=== PATIENT | male | born 1965 | race Caucasian/White ===

== ENCOUNTER 2018-09-23 11:41 | Inpatient (IN) | payer OTHER ==
[2018-09-23 12:18] LABS: ADD MAN DIFF? NO
[2018-09-23 12:23] LABS: WHITE BLOOD COUNT 7.3 10^3/ul (4.8-10.8)
[2018-09-23 12:23] LABS: BASOPHIL # 0.1 10^3/ul (0.0-0.1); BASOPHILS % 1.1 % (0.0-2.0); EOSINOPHILS # 0.1 10^3/ul (0.0-0.5); EOSINOPHILS % 1.4 % (0.0-7.0); HEMATOCRIT 49.2 % (42.0-52.0); HEMOGLOBIN 14.9 g/dl (14.0-18.0); LYMPHOCYTES # 1.1 10^3/ul (0.8-2.9); LYMPHOCYTES % 15.5 % (15.0-51.0); MEAN CORPUSCULAR HEMOGLOBIN 28.3 pg (29.0-33.0); MEAN CORPUSCULAR HGB CONC 30.3 g/dl (32.0-37.0); MEAN CORPUSCULAR VOLUME 93.4 fl (82.0-101.0); MEAN PLATELET VOLUME 9.6 fl (7.4-10.4); MONOCYTES % 13.7 % (0.0-11.0); NEUTROPHIL # 4.9 10^3/ul (1.6-7.5); NEUTROPHILS % 67.1 % (39.0-77.0); NUCLEATED RED BLOOD CELLS% 0.3 /100WBC (0.0-0.0); PLATELET COUNT 288 10^3/UL (140-415); RED BLOOD COUNT 5.27 10^6/ul (4.70-6.10); RED CELL DISTRIBUTION WIDTH 15.4 % (11.5-14.5)
[2018-09-23 12:43] LABS: PROTIME 15.3 Sec (11.9-14.9); PT RATIO 1.2
[2018-09-23 12:44] LABS: PARTIAL THROMBOPLASTIN TIME 31.9 Sec (23.0-35.0)
[2018-09-23] MEDS: ETOMIDATE 20 MG INJ IV (12:44)
[2018-09-23] MEDS: SUCCINYLCHOLINE CHLORIDE 100 MG/5 ML SYG IV (12:44)
[2018-09-23 12:48] LABS: ALANINE AMINOTRANSFERASE 52 IU/L (13-69); ALBUMIN 3.4 g/dl (3.3-4.9); ALBUMIN/GLOBULIN RATIO 0.97; ALKALINE PHOSPHATASE 143 IU/L (42-121); ANION GAP 8 (5-13); ASPARTATE AMINO TRANSFERASE 113 IU/L (15-46); BILIRUBIN,INDIRECT 0.6 mg/dl (0-1.1); BILIRUBIN,TOTAL 0.6 mg/dl (0.2-1.3); BLOOD UREA NITROGEN 16 mg/dl (7-20); CALCIUM 8.8 mg/dl (8.4-10.2); CARBON DIOXIDE 36 mmol/L (21-31); CHLORIDE 90 mmol/L (97-110); CREATINE KINASE 107 IU/L (23-200); CREATININE 0.92 mg/dl (0.61-1.24); Estimated GFR > 60 mL/min (>60); GLUCOSE 301 mg/dl (70-220); POTASSIUM 4.3 mmol/L (3.5-5.1); SODIUM 134 mmol/L (135-144); TOTAL PROTEIN 6.9 g/dl (6.1-8.1)
[2018-09-23 12:49] LABS: ACETAMINOPHEN < 10.0 ug/ml (10.0-30.0); ETHANOL < 10.0 mg/dl (0-0); SALICYLATE < 1.0 mg/dl (5.0-30.0)
[2018-09-23 12:59] LABS: CK INDEX 3.2; TROPONIN-I 0.013 ng/ml (0.000-0.120)
[2018-09-23 13:03] LABS: CK-MB 3.43 ng/ml (0.0-2.4)
[2018-09-23] MEDS: FUROSEMIDE 40 MG INJ IV ×2 (13:16→14:20)
[2018-09-23] MEDS: ALBUTEROL 0.5% (NEB) 2.5 MG/0.5 ML AMP INH (13:19)
[2018-09-23] MEDS: IPRATROPIUM (NEB) 0.5 MG/2.5 ML AMP INH (13:19)
[2018-09-23 13:25] LABS: B-TYPE NATRIURETIC PEPTIDE 1770 PG/ML (0-125)
[2018-09-23 13:40] LABS: FREE THYROXINE INDEX (Calc) 2.46 ug/ml (0.65-3.89); T3 UPTAKE 39.7 % (23.5-40.5); T4 (THYROXINE) 6.2 ug/dl (5.5-11.0)
[2018-09-23 13:41] LABS: AADO2 Arterial 499.2 mmHg (7.0-24.0); Allen Test ACCEPTAB; Arterial Base Excess 2.5 mmol/L (-3.0-3); Arterial Blood Gas Oxygen Sat 93.4 mmHG (95.0-98.0); Arterial COHb 3.8 % (0.0-3.0); Arterial Fraction of Oxyhgb 89.5 % (93.0-99.0); Arterial HCO3 37.7 mmol/L (22.0-26.0); Arterial MetHb 0.4 % (0.0-1.5); Arterial pCO2 126.3 mmhg (35-45); Blood Gas IEPAP 18/6; Blood Gas PS 12; MODE MASK - BIPAP; Site Right Radial
[2018-09-23] MEDS: PROPOFOL 100 ML IV ×3 (14:18→22:16)
[2018-09-23 14:20] LABS: HEMOGLOBIN A1C 10.4 % (0-5.9)
[2018-09-23] MEDS: PIPER-TAZO 3.375 GM IV (PMX) 100 ML IVPB (14:20)
[2018-09-23] MEDS: METHYLPREDNISOLONE 125 MG INJ IV (14:20)
[2018-09-23 14:28] LABS: ADD UMIC YES; UR ASCORBIC ACID NEGATIVE (NEGATIVE); UR BILIRUBIN (Dip) NEGATIVE (NEGATIVE); UR BLOOD (Dip) NEGATIVE (NEGATIVE); UR CLARITY CLEAR (CLEAR); UR COLOR AMBER (YELLOW); UR GLUCOSE (Dip) 2+ mg/dL (NEGATIVE); UR KETONES (Dip) NEGATIVE (NEGATIVE); UR LEUKOCYTE ESTERASE (Dip) NEGATIVE Leu/ul (NEGATIVE); UR NITRITE (Dip) NEGATIVE (NEGATIVE); UR RBC 9 /HPF (0-5); UR SPECIFIC GRAVITY (Dip) 1.022 (1.003-1.030); UR TOTAL PROTEIN (Dip) 3+ mg/dl (NEGATIVE); UR UROBILINOGEN (Dip) 2+ mg/dL (NEGATIVE); UR WBC 4 /HPF (0-5)
[2018-09-23 14:30] LABS: AMPHETAMINE/METHAMPHETAMINE Negative (NEGATIVE); BARBITURATES Negative (NEGATIVE); BENZODIAZEPINES Negative (NEGATIVE); CANNABINOIDS Positive (NEGATIVE); COCAINE Negative (NEGATIVE); OPIATES Negative (NEGATIVE)
[2018-09-23] MEDS ORDERED: ACETAMINOPHEN 325 MG TAB PO (14:30)
[2018-09-23] MEDS ORDERED: ONDANSETRON 4 MG INJ IV (14:30)
[2018-09-23] MEDS ORDERED: NACL 0.9% 3 ML SYG IV (15:30)
[2018-09-23] MEDS ORDERED: DEXTROSE 50% 50 ML SYRINGE IV (16:00)
[2018-09-23] MEDS: VANCOMYCIN 1 GM (PMX) 250 ML IVPB (16:26)
[2018-09-23] MEDS: ACCU-CHEK XX ×6 (18:12→23:00)
[2018-09-23] MEDS: FUROSEMIDE 20 MG INJ IV (18:15)
[2018-09-23] MEDS: LEVOFLOXACIN 750MG/D5W (PMX) 150 ML IVPB (18:39)
[2018-09-23] MEDS: INSULIN HUMAN REGULAR 100 UNIT in SOD CHLORIDE 0.9% 99 ML IV ×4 (18:48→23:07)
[2018-09-23] MEDS ORDERED: PROPOFOL 100 ML IV (19:45)
[2018-09-23 20:36] LABS: AADO2 Arterial 584.2 mmHg (7.0-24.0); Allen Test ACCEPTAB; Arterial Base Excess 4.1 mmol/L (-3.0-3); Arterial COHb 2.1 % (0.0-3.0); Arterial Fraction of Oxyhgb 89.8 % (93.0-99.0); Arterial MetHb 0.3 % (0.0-1.5); Arterial pCO2 61.3 mmhg (35-45); MODE VENT - AC; Site Right Radial
[2018-09-23] MEDS: ALBUTEROL/IPRATROPIUM (NEB) 3 ML AMP HHN (22:01)
[2018-09-23] MEDS: FAMOTIDINE 20 MG INJ IV (22:03)
[2018-09-24] MEDS: INSULIN HUMAN REGULAR 100 UNIT in SOD CHLORIDE 0.9% 99 ML IV ×6 (00:11→23:07)
[2018-09-24] MEDS: PROPOFOL 100 ML IV ×9 (00:50→23:04)
[2018-09-24] MEDS: ACCU-CHEK XX ×24 (01:12→23:08)
[2018-09-24] MEDS: ALBUTEROL/IPRATROPIUM (NEB) 3 ML AMP HHN ×3 (01:52→09:06)
[2018-09-24 04:45] LABS: ADD MAN DIFF? NO
[2018-09-24 04:46] LABS: BASOPHILS % 0.1 % (0.0-2.0); HEMATOCRIT 44.5 % (42.0-52.0); LYMPHOCYTES # 1.1 10^3/ul (0.8-2.9); MEAN CORPUSCULAR HEMOGLOBIN 28.3 pg (29.0-33.0); MEAN CORPUSCULAR HGB CONC 31.5 g/dl (32.0-37.0); MEAN CORPUSCULAR VOLUME 89.9 fl (82.0-101.0); MEAN PLATELET VOLUME 9.8 fl (7.4-10.4); MONOCYTE # 0.9 10^3/ul (0.3-0.9); MONOCYTES % 12.4 % (0.0-11.0); NEUTROPHIL # 5.1 10^3/ul (1.6-7.5); NEUTROPHILS % 71.8 % (39.0-77.0); NUCLEATED RED BLOOD CELLS% 0.4 /100WBC (0.0-0.0); PLATELET COUNT 270 10^3/UL (140-415); RED BLOOD COUNT 4.95 10^6/ul (4.70-6.10); RED CELL DISTRIBUTION WIDTH 16.1 % (11.5-14.5)
[2018-09-24 04:46] LABS: WHITE BLOOD COUNT 7.1 10^3/ul (4.8-10.8)
[2018-09-24 04:57] LABS: HEMOGLOBIN A1C 10.5 % (0-5.9)
[2018-09-24 05:05] LABS: AADO2 Arterial 575.7 mmHg (7.0-24.0); ALANINE AMINOTRANSFERASE 52 IU/L (13-69); ALBUMIN/GLOBULIN RATIO 0.93; ALKALINE PHOSPHATASE 103 IU/L (42-121); ANION GAP 9 (5-13); ASPARTATE AMINO TRANSFERASE 107 IU/L (15-46); Allen Test ACCEPTAB; Arterial Base Excess 6.1 mmol/L (-3.0-3); Arterial Blood Gas Oxygen Sat 95.1 mmHG (95.0-98.0); Arterial Fraction of Oxyhgb 93.8 % (93.0-99.0); Arterial HCO3 33.5 mmol/L (22.0-26.0); Arterial MetHb 0.4 % (0.0-1.5); Arterial pCO2 59.4 mmhg (35-45); BILIRUBIN,INDIRECT 0.2 mg/dl (0-1.1); BILIRUBIN,TOTAL 0.2 mg/dl (0.2-1.3); BLOOD UREA NITROGEN 20 mg/dl (7-20); CALCIUM 8.5 mg/dl (8.4-10.2); CARBON DIOXIDE 35 mmol/L (21-31); CHLORIDE 92 mmol/L (97-110); Estimated GFR > 60 mL/min (>60); GLUCOSE 174 mg/dl (70-220); MODE VENT - AC; POTASSIUM 4.5 mmol/L (3.5-5.1); SODIUM 136 mmol/L (135-144); Site Right Radial; TOTAL PROTEIN 6.2 g/dl (6.1-8.1)
[2018-09-24] MEDS: FUROSEMIDE 20 MG INJ IV ×2 (06:01→18:25)
[2018-09-24 08:49] LABS: AADO2 Arterial 583.7 mmHg (7.0-24.0); Allen Test ACCEPTAB; Arterial Base Excess 7.7 mmol/L (-3.0-3); Arterial Blood Gas Oxygen Sat 94.5 mmHG (95.0-98.0); Arterial COHb 0.9 % (0.0-3.0); Arterial Fraction of Oxyhgb 93.4 % (93.0-99.0); Arterial HCO3 34.3 mmol/L (22.0-26.0); Arterial MetHb 0.3 % (0.0-1.5); Arterial pCO2 55.5 mmhg (35-45); MODE VENT - AC; Site Right Radial
[2018-09-24] MEDS: FAMOTIDINE 20 MG INJ IV ×2 (09:57→21:24)
[2018-09-24] MEDS: ENOXAPARIN 30 MG/0.3 ML SYG SC (10:07)
[2018-09-24] MEDS: IPRATROPIUM (HFA) 12.9 GM INHALER INH ×3 (14:05→20:08)
[2018-09-24] MEDS: ALBUTEROL HFA 8 GM INHALER INH ×3 (14:05→20:07)
[2018-09-24] MEDS: LEVOFLOXACIN 750MG/D5W (PMX) 150 ML IVPB (18:24)
[2018-09-24] MEDS: HYDROmorphONE 0.5 MG/0.5 ML SYG IV (20:50)
[2018-09-25] MEDS: IPRATROPIUM (HFA) 12.9 GM INHALER INH ×6 (00:17→20:00)
[2018-09-25] MEDS: ALBUTEROL HFA 8 GM INHALER INH ×6 (00:17→20:00)
[2018-09-25] MEDS: ACCU-CHEK XX ×24 (00:55→23:00)
[2018-09-25] MEDS: PROPOFOL 100 ML IV ×9 (01:31→21:53)
[2018-09-25] MEDS: HYDROmorphONE 0.5 MG/0.5 ML SYG IV ×2 (01:31→12:53)
[2018-09-25] MEDS: INSULIN HUMAN REGULAR 100 UNIT in SOD CHLORIDE 0.9% 99 ML IV ×2 (05:44→07:04)
[2018-09-25] MEDS: FUROSEMIDE 20 MG INJ IV (06:43)
[2018-09-25 08:19] LABS: ADD MAN DIFF? NO
[2018-09-25 08:23] LABS: WHITE BLOOD COUNT 9.2 10^3/ul (4.8-10.8)
[2018-09-25 08:23] LABS: BASOPHIL # 0.1 10^3/ul (0.0-0.1); BASOPHILS % 0.5 % (0.0-2.0); EOSINOPHILS # 0.1 10^3/ul (0.0-0.5); EOSINOPHILS % 0.9 % (0.0-7.0); HEMATOCRIT 45.7 % (42.0-52.0); HEMOGLOBIN 14.4 g/dl (14.0-18.0); LYMPHOCYTES # 2.9 10^3/ul (0.8-2.9); MEAN CORPUSCULAR HEMOGLOBIN 28.4 pg (29.0-33.0); MEAN CORPUSCULAR HGB CONC 31.5 g/dl (32.0-37.0); MEAN CORPUSCULAR VOLUME 90.1 fl (82.0-101.0); MEAN PLATELET VOLUME 9.2 fl (7.4-10.4); MONOCYTE # 0.9 10^3/ul (0.3-0.9); NEUTROPHIL # 5.2 10^3/ul (1.6-7.5); NEUTROPHILS % 56.2 % (39.0-77.0); PLATELET COUNT 262 10^3/UL (140-415); RED BLOOD COUNT 5.07 10^6/ul (4.70-6.10)
[2018-09-25] MEDS: FAMOTIDINE 20 MG INJ IV ×2 (08:40→20:16)
[2018-09-25] MEDS: ENOXAPARIN 30 MG/0.3 ML SYG SC (08:41)
[2018-09-25 08:45] LABS: ANION GAP 8 (5-13); BLOOD UREA NITROGEN 22 mg/dl (7-20); CALCIUM 8.3 mg/dl (8.4-10.2); CARBON DIOXIDE 38 mmol/L (21-31); CHLORIDE 92 mmol/L (97-110); CREATININE 0.83 mg/dl (0.61-1.24); Estimated GFR > 60 mL/min (>60); GLUCOSE 120 mg/dl (70-220); POTASSIUM 4.1 mmol/L (3.5-5.1); SODIUM 138 mmol/L (135-144)
[2018-09-25 10:32] LABS: AADO2 Arterial 570.9 mmHg (7.0-24.0); Allen Test ACCEPTAB; Arterial Blood Gas Oxygen Sat 95.9 mmHG (95.0-98.0); Arterial COHb 0.6 % (0.0-3.0); Arterial HCO3 32.9 mmol/L (22.0-26.0); Arterial MetHb 0.3 % (0.0-1.5); Arterial pCO2 56.5 mmhg (35-45); MODE VENT - AC; Site Right Radial
[2018-09-25] MEDS: CEFEPIME 1GM/50 ML (PMX) 50 ML IVPB ×2 (11:32→20:16)
[2018-09-25] MEDS: FUROSEMIDE 40 MG INJ IV ×2 (11:32→18:12)
[2018-09-25] MEDS: LEVOFLOXACIN 750MG/D5W (PMX) 150 ML IVPB (18:12)
[2018-09-25] MEDS: NYSTATIN 30 GM POWDER BTL TOP ×2 (18:15→21:23)
[2018-09-26] MEDS: ALBUTEROL HFA 8 GM INHALER INH ×5 (00:04→19:40)
[2018-09-26] MEDS: IPRATROPIUM (HFA) 12.9 GM INHALER INH ×5 (00:04→19:40)
[2018-09-26] MEDS: PROPOFOL 100 ML IV ×12 (00:19→23:58)
[2018-09-26] MEDS: ACCU-CHEK XX ×16 (01:00→14:53)
[2018-09-26 05:24] LABS: ADD MAN DIFF? NO
[2018-09-26 05:27] LABS: WHITE BLOOD COUNT 7.5 10^3/ul (4.8-10.8)
[2018-09-26 05:27] LABS: BASOPHILS % 0.4 % (0.0-2.0); EOSINOPHILS # 0.1 10^3/ul (0.0-0.5); EOSINOPHILS % 0.9 % (0.0-7.0); HEMOGLOBIN 14.2 g/dl (14.0-18.0); LYMPHOCYTES # 1.7 10^3/ul (0.8-2.9); LYMPHOCYTES % 23.1 % (15.0-51.0); MEAN CORPUSCULAR HEMOGLOBIN 28.1 pg (29.0-33.0); MEAN CORPUSCULAR HGB CONC 31.6 g/dl (32.0-37.0); MEAN CORPUSCULAR VOLUME 88.9 fl (82.0-101.0); MEAN PLATELET VOLUME 10.3 fl (7.4-10.4); MONOCYTE # 0.8 10^3/ul (0.3-0.9); MONOCYTES % 10.7 % (0.0-11.0); NEUTROPHIL # 4.8 10^3/ul (1.6-7.5); NEUTROPHILS % 64.5 % (39.0-77.0); PLATELET COUNT 234 10^3/UL (140-415); RED BLOOD COUNT 5.06 10^6/ul (4.70-6.10); RED CELL DISTRIBUTION WIDTH 16.2 % (11.5-14.5)
[2018-09-26] MEDS: FUROSEMIDE 40 MG INJ IV ×2 (05:49→18:07)
[2018-09-26 05:50] LABS: ALANINE AMINOTRANSFERASE 32 IU/L (13-69); ALBUMIN 2.5 g/dl (3.3-4.9); ALKALINE PHOSPHATASE 61 IU/L (42-121); ANION GAP 7 (5-13); ASPARTATE AMINO TRANSFERASE 50 IU/L (15-46); BILIRUBIN,INDIRECT 0.5 mg/dl (0-1.1); BILIRUBIN,TOTAL 0.5 mg/dl (0.2-1.3); BLOOD UREA NITROGEN 17 mg/dl (7-20); CALCIUM 7.7 mg/dl (8.4-10.2); CARBON DIOXIDE 37 mmol/L (21-31); CHLORIDE 95 mmol/L (97-110); CREATININE 0.56 mg/dl (0.61-1.24); Estimated GFR > 60 mL/min (>60); GLUCOSE 111 mg/dl (70-220); POTASSIUM 4.4 mmol/L (3.5-5.1); SODIUM 139 mmol/L (135-144); TOTAL PROTEIN 5.6 g/dl (6.1-8.1)
[2018-09-26] MEDS: INSULIN HUMAN REGULAR 100 UNIT in SOD CHLORIDE 0.9% 99 ML IV (05:55)
[2018-09-26 07:26] LABS: AADO2 Arterial 496.5 mmHg (7.0-24.0); Allen Test ACCEPTAB; Arterial Base Excess 12.5 mmol/L (-3.0-3); Arterial Blood Gas Oxygen Sat 94.6 mmHG (95.0-98.0); Arterial COHb 0.6 % (0.0-3.0); Arterial Fraction of Oxyhgb 93.7 % (93.0-99.0); Arterial HCO3 40.6 mmol/L (22.0-26.0); Arterial MetHb 0.3 % (0.0-1.5); Arterial pCO2 66.2 mmhg (35-45); MODE VENT - AC; Site Right Radial
[2018-09-26] MEDS: FAMOTIDINE 20 MG INJ IV ×2 (08:23→20:00)
[2018-09-26] MEDS: CEFEPIME 1GM/50 ML (PMX) 50 ML IVPB (08:23)
[2018-09-26] MEDS: NYSTATIN 30 GM POWDER BTL TOP ×2 (08:24→20:06)
[2018-09-26] MEDS: ENOXAPARIN 30 MG/0.3 ML SYG SC ×2 (08:46→12:39)
[2018-09-26] MEDS: HYDROmorphONE 0.5 MG/0.5 ML SYG IV (15:29)
[2018-09-26] MEDS: LIDOCAINE 1% (MPF) 5 ML VIAL SC (16:00)
[2018-09-26] MEDS ORDERED: GLUCAGON 1 MG INJ IM (16:30)
[2018-09-26] MEDS ORDERED: GLUCOSE GEL 15 GRAM TUBE BUCCAL (16:30)
[2018-09-26] MEDS ORDERED: DEXTROSE 50% 50 ML SYRINGE IV ×2 (16:30)
[2018-09-26] MEDS ORDERED: GLUCOSE GEL 15 GRAM TUBE PO ×2 (16:30)
[2018-09-26] MEDS: INSULIN ASPART [NOVOLOG] 3 ML PEN SC ×2 (17:00→20:02)
[2018-09-26] MEDS ORDERED: ALBUTEROL HFA 8 GM INHALER INH (18:00)
[2018-09-26] MEDS: LEVOFLOXACIN 750MG/D5W (PMX) 150 ML IVPB (18:07)
[2018-09-26] MEDS: INSULIN GLARGINE [LANTus] (100 UNITS/ML) SYG SC (20:03)
[2018-09-26] MEDS ORDERED: CEFEPIME 2GM/50 ML (PMX) 50 ML IVPB (21:00)
[2018-09-27] MEDS: INSULIN ASPART [NOVOLOG] 3 ML PEN SC ×6 (01:00→20:41)
[2018-09-27] MEDS: PROPOFOL 100 ML IV ×13 (01:26→23:47)
[2018-09-27] MEDS: ALBUTEROL HFA 8 GM INHALER INH ×4 (01:27→19:22)
[2018-09-27] MEDS: IPRATROPIUM (HFA) 12.9 GM INHALER INH ×4 (01:27→19:22)
[2018-09-27] MEDS: ACCU-CHEK XX (02:00)
[2018-09-27 04:37] LABS: ADD MAN DIFF? NO
[2018-09-27 04:38] LABS: BASOPHIL # 0.1 10^3/ul (0.0-0.1); BASOPHILS % 0.6 % (0.0-2.0); EOSINOPHILS # 0.1 10^3/ul (0.0-0.5); EOSINOPHILS % 1.2 % (0.0-7.0); HEMATOCRIT 44.3 % (42.0-52.0); HEMOGLOBIN 13.9 g/dl (14.0-18.0); LYMPHOCYTES # 2.2 10^3/ul (0.8-2.9); LYMPHOCYTES % 27.6 % (15.0-51.0); MEAN CORPUSCULAR HEMOGLOBIN 27.9 pg (29.0-33.0); MEAN CORPUSCULAR HGB CONC 31.4 g/dl (32.0-37.0); MEAN PLATELET VOLUME 9.5 fl (7.4-10.4); MONOCYTE # 1.1 10^3/ul (0.3-0.9); MONOCYTES % 13.1 % (0.0-11.0); NEUTROPHIL # 4.6 10^3/ul (1.6-7.5); NEUTROPHILS % 57.1 % (39.0-77.0); PLATELET COUNT 235 10^3/UL (140-415); RED BLOOD COUNT 4.98 10^6/ul (4.70-6.10); RED CELL DISTRIBUTION WIDTH 16.2 % (11.5-14.5)
[2018-09-27] MEDS: FUROSEMIDE 40 MG INJ IV ×2 (04:49→17:08)
[2018-09-27 04:59] LABS: BLOOD UREA NITROGEN 13 mg/dl (7-20); CALCIUM 8.1 mg/dl (8.4-10.2); CHLORIDE 92 mmol/L (97-110); CREATININE 0.63 mg/dl (0.61-1.24); Estimated GFR > 60 mL/min (>60); GLUCOSE 114 mg/dl (70-220); POTASSIUM 3.3 mmol/L (3.5-5.1); SODIUM 138 mmol/L (135-144)
[2018-09-27 05:09] LABS: ANION GAP 7 (5-13); CARBON DIOXIDE 39 mmol/L (21-31)
[2018-09-27] MEDS ORDERED: POTASSIUM CHLORIDE (SR) 20 MEQ TAB PO (08:34)
[2018-09-27] MEDS: POTASSIUM CHLORIDE 20 MEQ POWDER FOR ORAL SOLN PO (08:56)
[2018-09-27] MEDS: ENOXAPARIN 60 MG/0.6 ML SYG SC (08:58)
[2018-09-27] MEDS: FAMOTIDINE 20 MG INJ IV ×2 (09:00→20:42)
[2018-09-27] MEDS: NYSTATIN 30 GM POWDER BTL TOP ×2 (09:00→20:57)
[2018-09-27] MEDS: LEVOFLOXACIN 750MG/D5W (PMX) 150 ML IVPB (18:32)
[2018-09-27] MEDS: INSULIN GLARGINE [LANTus] (100 UNITS/ML) SYG SC (20:48)
[2018-09-28] MEDS: LORAZEPAM 4 MG/ML VIAL IV (00:49)
[2018-09-28] MEDS: INSULIN ASPART [NOVOLOG] 3 ML PEN SC ×6 (00:59→21:00)
[2018-09-28] MEDS: PROPOFOL 100 ML IV ×5 (01:27→10:48)
[2018-09-28] MEDS: ALBUTEROL HFA 8 GM INHALER INH ×4 (01:56→19:47)
[2018-09-28] MEDS: IPRATROPIUM (HFA) 12.9 GM INHALER INH ×4 (01:56→19:47)
[2018-09-28] MEDS: ACCU-CHEK XX (02:15)
[2018-09-28] MEDS: MIDAZOLAM (DRIP) 50 mg/50 mL 50 ML IV ×2 (03:24→11:15)
[2018-09-28 03:40] LABS: ADD UMIC YES; UR ASCORBIC ACID 40 mg/dL (NEGATIVE); UR BILIRUBIN (Dip) NEGATIVE (NEGATIVE); UR BLOOD (Dip) 1+ mg/dL (NEGATIVE); UR CLARITY SLIGHTLY CLOUDY (CLEAR); UR COLOR AMBER (YELLOW); UR GLUCOSE (Dip) NEGATIVE (NEGATIVE); UR KETONES (Dip) NEGATIVE (NEGATIVE); UR LEUKOCYTE ESTERASE (Dip) NEGATIVE Leu/ul (NEGATIVE); UR NITRITE (Dip) NEGATIVE (NEGATIVE); UR RBC > 182 /HPF (0-5); UR SPECIFIC GRAVITY (Dip) 1.031 (1.003-1.030); UR TOTAL PROTEIN (Dip) 1+ mg/dl (NEGATIVE); UR UROBILINOGEN (Dip) 2+ mg/dL (NEGATIVE); UR WBC 9 /HPF (0-5)
[2018-09-28] MEDS: FUROSEMIDE 40 MG INJ IV ×2 (05:13→17:48)
[2018-09-28 05:23] LABS: ADD MAN DIFF? NO
[2018-09-28 05:32] LABS: BASOPHILS % 0.4 % (0.0-2.0); EOSINOPHILS # 0.2 10^3/ul (0.0-0.5); EOSINOPHILS % 2.1 % (0.0-7.0); HEMATOCRIT 44.8 % (42.0-52.0); HEMOGLOBIN 13.9 g/dl (14.0-18.0); LYMPHOCYTES # 2.2 10^3/ul (0.8-2.9); LYMPHOCYTES % 24.5 % (15.0-51.0); MEAN CORPUSCULAR HEMOGLOBIN 27.7 pg (29.0-33.0); MEAN CORPUSCULAR VOLUME 89.2 fl (82.0-101.0); MEAN PLATELET VOLUME 9.4 fl (7.4-10.4); MONOCYTE # 1.3 10^3/ul (0.3-0.9); MONOCYTES % 14.5 % (0.0-11.0); NEUTROPHIL # 5.3 10^3/ul (1.6-7.5); NEUTROPHILS % 57.9 % (39.0-77.0); PLATELET COUNT 230 10^3/UL (140-415); RED BLOOD COUNT 5.02 10^6/ul (4.70-6.10); RED CELL DISTRIBUTION WIDTH 16.4 % (11.5-14.5)
[2018-09-28 05:32] LABS: WHITE BLOOD COUNT 9.1 10^3/ul (4.8-10.8)
[2018-09-28 06:08] LABS: BLOOD UREA NITROGEN 12 mg/dl (7-20); CHLORIDE 90 mmol/L (97-110); CREATININE 0.55 mg/dl (0.61-1.24); Estimated GFR > 60 mL/min (>60); GLUCOSE 127 mg/dl (70-220); MAGNESIUM 1.2 mg/dl (1.7-2.5); POTASSIUM 3.3 mmol/L (3.5-5.1); SODIUM 141 mmol/L (135-144)
[2018-09-28 07:01] LABS: ANION GAP 11 (5-13)
[2018-09-28 07:08] LABS: CARBON DIOXIDE 40 mmol/L (21-31)
[2018-09-28] MEDS: MAGNESIUM SULFATE 4 GM/100 ML 100 ML IVPB (07:50)
[2018-09-28] MEDS: NYSTATIN 30 GM POWDER BTL TOP ×2 (08:40→20:54)
[2018-09-28] MEDS: FAMOTIDINE 20 MG INJ IV ×2 (08:40→20:53)
[2018-09-28] MEDS: ENOXAPARIN 60 MG/0.6 ML SYG SC (08:52)
[2018-09-28 08:53] LABS: AADO2 Arterial 587.3 mmHg (7.0-24.0); Allen Test ACCEPTAB; Arterial Base Excess 14.3 mmol/L (-3.0-3); Arterial Blood Gas Oxygen Sat 91.8 mmHG (95.0-98.0); Arterial Fraction of Oxyhgb 90.6 % (93.0-99.0); Arterial HCO3 41.5 mmol/L (22.0-26.0); Arterial MetHb 0.3 % (0.0-1.5); Arterial pCO2 61.3 mmhg (35-45); MODE VENT - AC; Site Right Radial
[2018-09-28] MEDS: FENTAnyl 1,000 MCG in SOD CHLORIDE 0.9% 80 ML IV (11:30)
[2018-09-28] MEDS: CEFEPIME 2GM/50 ML (PMX) 50 ML IVPB ×2 (12:45→21:06)
[2018-09-28] MEDS: POTASSIUM CHLORIDE 100 ML IVPB (14:24)
[2018-09-28] MEDS: LEVOFLOXACIN 750MG/D5W (PMX) 150 ML IVPB (18:31)
[2018-09-28] MEDS: DOCUSATE SODIUM 10 MG/ML (10ML CUP) GTB ×2 (20:53→21:00)
[2018-09-28] MEDS: INSULIN GLARGINE [LANTus] (100 UNITS/ML) SYG SC (21:02)
[2018-09-29] MEDS: INSULIN ASPART [NOVOLOG] 3 ML PEN SC ×6 (00:47→20:47)
[2018-09-29] MEDS: IPRATROPIUM (HFA) 12.9 GM INHALER INH ×4 (01:28→19:54)
[2018-09-29] MEDS: ALBUTEROL HFA 8 GM INHALER INH ×4 (01:28→19:54)
[2018-09-29] MEDS: ACCU-CHEK XX (01:46)
[2018-09-29] MEDS: FENTAnyl 1,000 MCG in SOD CHLORIDE 0.9% 80 ML IV ×2 (03:44→16:39)
[2018-09-29] MEDS: FUROSEMIDE 40 MG INJ IV ×2 (05:11→18:04)
[2018-09-29 05:14] LABS: ADD MAN DIFF? NO
[2018-09-29] MEDS: MIDAZOLAM (DRIP) 50 mg/50 mL 50 ML IV ×2 (05:18→16:25)
[2018-09-29 05:24] LABS: WHITE BLOOD COUNT 10.4 10^3/ul (4.8-10.8)
[2018-09-29 05:24] LABS: ABNORMAL IP MESSAGE 1; BASOPHIL # 0.1 10^3/ul (0.0-0.1); BASOPHILS % 0.5 % (0.0-2.0); EOSINOPHILS # 0.3 10^3/ul (0.0-0.5); EOSINOPHILS % 3.2 % (0.0-7.0); HEMATOCRIT 44.5 % (42.0-52.0); HEMOGLOBIN 13.6 g/dl (14.0-18.0); LYMPHOCYTES # 1.8 10^3/ul (0.8-2.9); LYMPHOCYTES % 17.1 % (15.0-51.0); MEAN CORPUSCULAR HEMOGLOBIN 27.6 pg (29.0-33.0); MEAN CORPUSCULAR HGB CONC 30.6 g/dl (32.0-37.0); MEAN CORPUSCULAR VOLUME 90.3 fl (82.0-101.0); MEAN PLATELET VOLUME 10.3 fl (7.4-10.4); MONOCYTE # 1.5 10^3/ul (0.3-0.9); MONOCYTES % 14.7 % (0.0-11.0); NEUTROPHIL # 6.6 10^3/ul (1.6-7.5); NEUTROPHILS % 63.6 % (39.0-77.0); PLATELET COUNT 236 10^3/UL (140-415); POSITIVE DIFF @See below; RED BLOOD COUNT 4.93 10^6/ul (4.70-6.10); RED CELL DISTRIBUTION WIDTH 16.6 % (11.5-14.5)
[2018-09-29 05:41] LABS: BLOOD UREA NITROGEN 14 mg/dl (7-20); CALCIUM 8.1 mg/dl (8.4-10.2); CHLORIDE 91 mmol/L (97-110); CREATININE 0.62 mg/dl (0.61-1.24); Estimated GFR > 60 mL/min (>60); GLUCOSE 120 mg/dl (70-220); MAGNESIUM 1.7 mg/dl (1.7-2.5); POTASSIUM 3.3 mmol/L (3.5-5.1); SODIUM 139 mmol/L (135-144)
[2018-09-29 05:49] LABS: ANION GAP 8 (5-13)
[2018-09-29 05:53] LABS: CARBON DIOXIDE 40 mmol/L (21-31)
[2018-09-29 08:35] LABS: AADO2 Arterial 582.6 mmHg (7.0-24.0); Allen Test ACCEPTAB; Arterial Base Excess 16.1 mmol/L (-3.0-3); Arterial Blood Gas Oxygen Sat 89.4 mmHG (95.0-98.0); Arterial Fraction of Oxyhgb 88.3 % (93.0-99.0); Arterial HCO3 44.6 mmol/L (22.0-26.0); Arterial MetHb 0.2 % (0.0-1.5); Arterial pCO2 70.6 mmhg (35-45); MODE VENT - AC; Site Right Radial
[2018-09-29] MEDS: POTASSIUM CHLORIDE 20 MEQ POWDER FOR ORAL SOLN NGT (08:50)
[2018-09-29] MEDS: DOCUSATE SODIUM 10 MG/ML (10ML CUP) GTB ×2 (08:50→20:52)
[2018-09-29] MEDS: FAMOTIDINE 20 MG INJ IV ×2 (08:50→20:52)
[2018-09-29] MEDS: MAGNESIUM SULFATE 1 GM/D5W 100 ML IVPB (08:51)
[2018-09-29] MEDS: NYSTATIN 30 GM POWDER BTL TOP ×2 (08:51→20:53)
[2018-09-29] MEDS: ENOXAPARIN 60 MG/0.6 ML SYG SC (09:10)
[2018-09-29] MEDS: CEFEPIME 2GM/50 ML (PMX) 50 ML IVPB ×2 (09:28→20:52)
[2018-09-29] MEDS: LEVOFLOXACIN 750MG/D5W (PMX) 150 ML IVPB (18:04)
[2018-09-29] MEDS: PROPOFOL 100 ML IV (20:00)
[2018-09-29] MEDS ORDERED: VANCOMYCIN IV PER PHARMACY XX (20:30)
[2018-09-29] MEDS: INSULIN GLARGINE [LANTus] (100 UNITS/ML) SYG SC (20:54)
[2018-09-29] MEDS: ACETAMINOPHEN 325 MG TAB PO (20:59)
[2018-09-29] MEDS: VANCOMYCIN HCL 2 GM in SOD CHLORIDE 0.9% 500 ML IVPB (23:25)
[2018-09-30] MEDS: INSULIN ASPART [NOVOLOG] 3 ML PEN SC ×6 (01:08→20:37)
[2018-09-30] MEDS: ALBUTEROL HFA 8 GM INHALER INH ×4 (01:18→19:32)
[2018-09-30] MEDS: IPRATROPIUM (HFA) 12.9 GM INHALER INH ×4 (01:18→19:32)
[2018-09-30] MEDS: ACCU-CHEK XX (02:06)
[2018-09-30] MEDS: MIDAZOLAM (DRIP) 50 mg/50 mL 50 ML IV ×3 (03:18→23:55)
[2018-09-30 05:14] LABS: ADD MAN DIFF? NO
[2018-09-30 05:23] LABS: ABNORMAL IP MESSAGE 1; BASOPHIL # 0.1 10^3/ul (0.0-0.1); BASOPHILS % 0.8 % (0.0-2.0); EOSINOPHILS # 0.4 10^3/ul (0.0-0.5); HEMATOCRIT 43.3 % (42.0-52.0); HEMOGLOBIN 13.1 g/dl (14.0-18.0); LYMPHOCYTES % 18.4 % (15.0-51.0); MEAN CORPUSCULAR HEMOGLOBIN 27.4 pg (29.0-33.0); MEAN CORPUSCULAR HGB CONC 30.3 g/dl (32.0-37.0); MEAN CORPUSCULAR VOLUME 90.6 fl (82.0-101.0); MEAN PLATELET VOLUME 10.1 fl (7.4-10.4); MONOCYTE # 1.6 10^3/ul (0.3-0.9); MONOCYTES % 14.9 % (0.0-11.0); NEUTROPHIL # 6.6 10^3/ul (1.6-7.5); NEUTROPHILS % 61.2 % (39.0-77.0); PLATELET COUNT 231 10^3/UL (140-415); POSITIVE DIFF @See below; RED BLOOD COUNT 4.78 10^6/ul (4.70-6.10); RED CELL DISTRIBUTION WIDTH 16.7 % (11.5-14.5)
[2018-09-30 05:23] LABS: WHITE BLOOD COUNT 10.7 10^3/ul (4.8-10.8)
[2018-09-30 05:49] LABS: BLOOD UREA NITROGEN 20 mg/dl (7-20); CALCIUM 8.3 mg/dl (8.4-10.2); CHLORIDE 91 mmol/L (97-110); CREATININE 0.66 mg/dl (0.61-1.24); Estimated GFR > 60 mL/min (>60); GLUCOSE 152 mg/dl (70-220); POTASSIUM 3.7 mmol/L (3.5-5.1); SODIUM 139 mmol/L (135-144)
[2018-09-30 05:58] LABS: ANION GAP 8 (5-13)
[2018-09-30 06:05] LABS: CARBON DIOXIDE 40 mmol/L (21-31)
[2018-09-30] MEDS: FUROSEMIDE 40 MG INJ IV ×2 (06:39→17:59)
[2018-09-30] MEDS: FENTAnyl 1,000 MCG in SOD CHLORIDE 0.9% 80 ML IV ×2 (06:40→20:40)
[2018-09-30] MEDS: PROPOFOL 100 ML IV (08:00)
[2018-09-30] MEDS: CEFEPIME 2GM/50 ML (PMX) 50 ML IVPB ×2 (08:29→20:35)
[2018-09-30] MEDS: VANCOMYCIN HCL 2 GM in SOD CHLORIDE 0.9% 500 ML IVPB ×3 (08:32→22:49)
[2018-09-30] MEDS: FAMOTIDINE 20 MG INJ IV ×2 (08:33→20:35)
[2018-09-30] MEDS: DOCUSATE SODIUM 10 MG/ML (10ML CUP) GTB ×2 (08:33→20:35)
[2018-09-30] MEDS: NYSTATIN 30 GM POWDER BTL TOP ×2 (08:33→20:36)
[2018-09-30] MEDS: ENOXAPARIN 60 MG/0.6 ML SYG SC (08:45)
[2018-09-30] MEDS ORDERED: LIDOCAINE 1% (MDV) 20 ML INJ SC (12:32)
[2018-09-30] MEDS: INSULIN GLARGINE [LANTus] (100 UNITS/ML) SYG SC (20:37)
[2018-10-01] MEDS: INSULIN ASPART [NOVOLOG] 3 ML PEN SC ×6 (01:00→20:19)
[2018-10-01 02:42] LABS: Allen Test ACCEPTAB; Arterial Base Excess 15.4 mmol/L (-3.0-3); Arterial Blood Gas Oxygen Sat 93.3 mmHG (95.0-98.0); Arterial COHb 0.8 % (0.0-3.0); Arterial Fraction of Oxyhgb 92.2 % (93.0-99.0); Arterial HCO3 44.2 mmol/L (22.0-26.0); Arterial MetHb 0.4 % (0.0-1.5); Arterial pCO2 74.6 mmhg (35-45); MODE VENT - PC; Site Right Radial
[2018-10-01] MEDS: IPRATROPIUM (HFA) 12.9 GM INHALER INH ×4 (02:48→19:51)
[2018-10-01] MEDS: ALBUTEROL HFA 8 GM INHALER INH ×4 (02:48→19:51)
[2018-10-01] MEDS: ACCU-CHEK XX (02:51)
[2018-10-01 04:56] LABS: ADD MAN DIFF? NO
[2018-10-01 05:08] LABS: WHITE BLOOD COUNT 10.7 10^3/ul (4.8-10.8)
[2018-10-01 05:08] LABS: BASOPHIL # 0.1 10^3/ul (0.0-0.1); BASOPHILS % 0.5 % (0.0-2.0); EOSINOPHILS # 0.5 10^3/ul (0.0-0.5); EOSINOPHILS % 4.9 % (0.0-7.0); HEMATOCRIT 42.4 % (42.0-52.0); HEMOGLOBIN 12.7 g/dl (14.0-18.0); LYMPHOCYTES # 1.9 10^3/ul (0.8-2.9); LYMPHOCYTES % 17.8 % (15.0-51.0); MEAN CORPUSCULAR HEMOGLOBIN 27.1 pg (29.0-33.0); MEAN CORPUSCULAR VOLUME 90.6 fl (82.0-101.0); MEAN PLATELET VOLUME 10.5 fl (7.4-10.4); MONOCYTE # 1.4 10^3/ul (0.3-0.9); MONOCYTES % 13.3 % (0.0-11.0); NEUTROPHIL # 6.7 10^3/ul (1.6-7.5); NEUTROPHILS % 62.7 % (39.0-77.0); PLATELET COUNT 266 10^3/UL (140-415); RED BLOOD COUNT 4.68 10^6/ul (4.70-6.10)
[2018-10-01 05:31] LABS: BLOOD UREA NITROGEN 26 mg/dl (7-20); CALCIUM 8.8 mg/dl (8.4-10.2); CHLORIDE 93 mmol/L (97-110); Estimated GFR > 60 mL/min (>60); GLUCOSE 180 mg/dl (70-220); POTASSIUM 3.8 mmol/L (3.5-5.1); SODIUM 139 mmol/L (135-144)
[2018-10-01 05:39] LABS: ANION GAP 7 (5-13)
[2018-10-01 05:43] LABS: CARBON DIOXIDE 39 mmol/L (21-31)
[2018-10-01 05:46] LABS: VANCOMYCIN,TROUGH 24.8 ug/ml (10.0-20.0)
[2018-10-01] MEDS: FUROSEMIDE 40 MG INJ IV ×2 (06:32→17:17)
[2018-10-01] MEDS: MIDAZOLAM (DRIP) 50 mg/50 mL 50 ML IV ×2 (06:33→16:19)
[2018-10-01] MEDS: ACETAMINOPHEN 325 MG TAB PO (06:33)
[2018-10-01] MEDS: FAMOTIDINE 20 MG INJ IV ×2 (08:12→20:15)
[2018-10-01] MEDS: DOCUSATE SODIUM 10 MG/ML (10ML CUP) GTB ×2 (08:12→20:15)
[2018-10-01] MEDS: ENOXAPARIN 60 MG/0.6 ML SYG SC (08:14)
[2018-10-01] MEDS: FENTAnyl 1,000 MCG in SOD CHLORIDE 0.9% 80 ML IV ×2 (08:14→17:20)
[2018-10-01] MEDS: CEFEPIME 2GM/50 ML (PMX) 50 ML IVPB ×2 (08:52→20:15)
[2018-10-01] MEDS: NYSTATIN 30 GM POWDER BTL TOP ×2 (08:55→20:19)
[2018-10-01 14:27] LABS: AADO2 Arterial 549.3 mmHg (7.0-24.0); Allen Test ACCEPTAB; Arterial Base Excess 15.1 mmol/L (-3.0-3); Arterial Blood Gas Oxygen Sat 96.3 mmHG (95.0-98.0); Arterial COHb 0.8 % (0.0-3.0); Arterial Fraction of Oxyhgb 95.2 % (93.0-99.0); Arterial HCO3 43.9 mmol/L (22.0-26.0); Arterial MetHb 0.3 % (0.0-1.5); MODE VENT - AC; Site Left Radial
[2018-10-01] MEDS: VANCOMYCIN HCL 2 GM in SOD CHLORIDE 0.9% 500 ML IVPB (16:20)
[2018-10-01] MEDS: INSULIN GLARGINE [LANTus] (100 UNITS/ML) SYG SC (20:16)
[2018-10-02] MEDS: INSULIN ASPART [NOVOLOG] 3 ML PEN SC ×6 (00:55→20:48)
[2018-10-02] MEDS: MIDAZOLAM (DRIP) 50 mg/50 mL 50 ML IV ×3 (00:55→18:44)
[2018-10-02] MEDS: ALBUTEROL HFA 8 GM INHALER INH ×4 (02:08→20:25)
[2018-10-02] MEDS: IPRATROPIUM (HFA) 12.9 GM INHALER INH ×4 (02:08→20:25)
[2018-10-02] MEDS: ACCU-CHEK XX (02:31)
[2018-10-02] MEDS: FENTAnyl 1,000 MCG in SOD CHLORIDE 0.9% 80 ML IV ×2 (03:24→14:06)
[2018-10-02] MEDS: VANCOMYCIN HCL 2 GM in SOD CHLORIDE 0.9% 500 ML IVPB ×2 (04:27→16:31)
[2018-10-02 04:56] LABS: AADO2 Arterial 467.9 mmHg (7.0-24.0); Allen Test ACCEPTAB; Arterial Base Excess 14.9 mmol/L (-3.0-3); Arterial Blood Gas Oxygen Sat 96.2 mmHG (95.0-98.0); Arterial COHb 1.3 % (0.0-3.0); Arterial Fraction of Oxyhgb 94.6 % (93.0-99.0); Arterial HCO3 44.7 mmol/L (22.0-26.0); Arterial MetHb 0.4 % (0.0-1.5); Arterial pCO2 82.9 mmhg (35-45); MODE VENT - AC; Site Right Radial
[2018-10-02 05:23] LABS: ADD MAN DIFF? NO
[2018-10-02 05:32] LABS: WHITE BLOOD COUNT 10.7 10^3/ul (4.8-10.8)
[2018-10-02 05:32] LABS: ABNORMAL IP MESSAGE 1; BASOPHIL # 0.1 10^3/ul (0.0-0.1); BASOPHILS % 0.8 % (0.0-2.0); EOSINOPHILS # 0.8 10^3/ul (0.0-0.5); EOSINOPHILS % 7.2 % (0.0-7.0); HEMOGLOBIN 12.7 g/dl (14.0-18.0); LYMPHOCYTES # 1.9 10^3/ul (0.8-2.9); LYMPHOCYTES % 18.2 % (15.0-51.0); MEAN CORPUSCULAR HEMOGLOBIN 27.2 pg (29.0-33.0); MEAN CORPUSCULAR HGB CONC 29.5 g/dl (32.0-37.0); MEAN CORPUSCULAR VOLUME 92.1 fl (82.0-101.0); MEAN PLATELET VOLUME 10.7 fl (7.4-10.4); MONOCYTE # 1.8 10^3/ul (0.3-0.9); NEUTROPHILS % 56.2 % (39.0-77.0); PLATELET COUNT 274 10^3/UL (140-415); POSITIVE DIFF @See below; RED BLOOD COUNT 4.67 10^6/ul (4.70-6.10); RED CELL DISTRIBUTION WIDTH 17.2 % (11.5-14.5)
[2018-10-02] MEDS: FUROSEMIDE 40 MG INJ IV ×2 (05:40→17:41)
[2018-10-02 05:56] LABS: LACTIC ACID 1.4 mmol/L (0.5-2.0)
[2018-10-02 05:58] LABS: BLOOD UREA NITROGEN 32 mg/dl (7-20); CALCIUM 9.1 mg/dl (8.4-10.2); CHLORIDE 93 mmol/L (97-110); CREATININE 0.65 mg/dl (0.61-1.24); Estimated GFR > 60 mL/min (>60); GLUCOSE 156 mg/dl (70-220); POTASSIUM 4.1 mmol/L (3.5-5.1); SODIUM 141 mmol/L (135-144)
[2018-10-02 06:08] LABS: ANION GAP 9 (5-13)
[2018-10-02 06:26] LABS: CARBON DIOXIDE 39 mmol/L (21-31)
[2018-10-02 07:52] LABS: ANISOCYTOSIS 1+ (0-0); BAND NEUTROPHILS #M 0.2 10^3/ul (0.0-0.6); BAND NEUTROPHILS % (M) 2 % (0-4); EOSINOPHILS % (M) 11 % (0-7); GIANT THROMBO% (M) 3 % (0-0); LYMPHOCYTES #M 1.1 10^3/ul (0.8-2.9); LYMPHOCYTES % (M) 11 % (15-51); MONOCYTE #M 1.3 10^3/ul (0.3-0.9); MONOCYTES % (M) 13 % (0-11); PLATELET ESTIMATE NORMAL; POIKILOCYTOSIS 1+ (0-0); POLYCHROMASIA 3+ (0-0); SEG NEUT #M 6.8 10^3/ul (1.6-7.5); SEGMENTED NEUTROPHILS (M) % 63 % (39-77); SMUDGE%M 7 % (0-0); TARGET CELLS 1+ (0-0)
[2018-10-02] MEDS: CEFEPIME 2GM/50 ML (PMX) 50 ML IVPB ×2 (09:37→20:47)
[2018-10-02] MEDS: DOCUSATE SODIUM 10 MG/ML (10ML CUP) GTB ×2 (09:37→20:46)
[2018-10-02] MEDS: FAMOTIDINE 20 MG INJ IV ×2 (09:37→20:46)
[2018-10-02] MEDS: ENOXAPARIN 60 MG/0.6 ML SYG SC (09:40)
[2018-10-02] MEDS: NYSTATIN 30 GM POWDER BTL TOP ×2 (09:54→20:46)
[2018-10-02] MEDS: INSULIN GLARGINE [LANTus] (100 UNITS/ML) SYG SC (20:47)
[2018-10-03] MEDS: INSULIN ASPART [NOVOLOG] 3 ML PEN SC ×6 (00:48→20:38)
[2018-10-03] MEDS: FENTAnyl 1,000 MCG in SOD CHLORIDE 0.9% 80 ML IV ×3 (01:08→20:46)
[2018-10-03] MEDS: IPRATROPIUM (HFA) 12.9 GM INHALER INH ×4 (01:39→19:20)
[2018-10-03] MEDS: ALBUTEROL HFA 8 GM INHALER INH ×4 (01:39→19:20)
[2018-10-03] MEDS: ACCU-CHEK XX (02:22)
[2018-10-03] MEDS: MIDAZOLAM (DRIP) 50 mg/50 mL 50 ML IV ×3 (03:27→20:46)
[2018-10-03 04:42] LABS: AADO2 Arterial 401.4 mmHg (7.0-24.0); Allen Test ACCEPTAB; Arterial Base Excess 15.8 mmol/L (-3.0-3); Arterial Blood Gas Oxygen Sat 94.9 mmHG (95.0-98.0); Arterial COHb 0.6 % (0.0-3.0); Arterial HCO3 45.9 mmol/L (22.0-26.0); Arterial MetHb 0.3 % (0.0-1.5); MODE VENT - AC; Site Right Radial
[2018-10-03 05:10] LABS: ADD MAN DIFF? NO
[2018-10-03 05:13] LABS: ABNORMAL IP MESSAGE 1; BASOPHIL # 0.1 10^3/ul (0.0-0.1); BASOPHILS % 0.9 % (0.0-2.0); EOSINOPHILS # 0.7 10^3/ul (0.0-0.5); EOSINOPHILS % 6.8 % (0.0-7.0); HEMATOCRIT 42.8 % (42.0-52.0); HEMOGLOBIN 12.6 g/dl (14.0-18.0); LYMPHOCYTES # 1.9 10^3/ul (0.8-2.9); LYMPHOCYTES % 17.8 % (15.0-51.0); MEAN CORPUSCULAR HEMOGLOBIN 27.2 pg (29.0-33.0); MEAN CORPUSCULAR HGB CONC 29.4 g/dl (32.0-37.0); MEAN CORPUSCULAR VOLUME 92.4 fl (82.0-101.0); MONOCYTE # 1.7 10^3/ul (0.3-0.9); MONOCYTES % 15.8 % (0.0-11.0); NEUTROPHIL # 6.3 10^3/ul (1.6-7.5); NEUTROPHILS % 58.3 % (39.0-77.0); PLATELET COUNT 296 10^3/UL (140-415); POSITIVE DIFF @See below; RED BLOOD COUNT 4.63 10^6/ul (4.70-6.10); RED CELL DISTRIBUTION WIDTH 17.4 % (11.5-14.5)
[2018-10-03 05:13] LABS: WHITE BLOOD COUNT 10.8 10^3/ul (4.8-10.8)
[2018-10-03 05:36] LABS: LACTIC ACID 1.4 mmol/L (0.5-2.0)
[2018-10-03 05:45] LABS: BLOOD UREA NITROGEN 30 mg/dl (7-20); CALCIUM 9.2 mg/dl (8.4-10.2); CHLORIDE 94 mmol/L (97-110); CREATININE 0.57 mg/dl (0.61-1.24); Estimated GFR > 60 mL/min (>60); GLUCOSE 150 mg/dl (70-220); POTASSIUM 4.5 mmol/L (3.5-5.1); SODIUM 141 mmol/L (135-144)
[2018-10-03] MEDS: FUROSEMIDE 40 MG INJ IV ×2 (05:46→18:10)
[2018-10-03 06:21] LABS: ANION GAP 6 (5-13); CARBON DIOXIDE 41 mmol/L (21-31)
[2018-10-03] MEDS: NYSTATIN 30 GM POWDER BTL TOP ×2 (09:00→20:35)
[2018-10-03] MEDS: FAMOTIDINE 20 MG INJ IV ×2 (09:56→20:34)
[2018-10-03] MEDS: DOCUSATE SODIUM 10 MG/ML (10ML CUP) GTB ×2 (09:56→20:34)
[2018-10-03] MEDS: CEFEPIME 2GM/50 ML (PMX) 50 ML IVPB ×2 (09:57→20:35)
[2018-10-03] MEDS: ENOXAPARIN 60 MG/0.6 ML SYG SC (10:14)
[2018-10-03] MEDS: METHYLPREDNISOLONE 40 MG INJ IV ×2 (12:58→18:10)
[2018-10-03] MEDS: INSULIN GLARGINE [LANTus] (100 UNITS/ML) SYG SC (20:36)
[2018-10-04] MEDS: METHYLPREDNISOLONE 40 MG INJ IV ×4 (01:07→17:26)
[2018-10-04] MEDS: INSULIN ASPART [NOVOLOG] 3 ML PEN SC ×6 (01:09→20:38)
[2018-10-04] MEDS: ALBUTEROL HFA 8 GM INHALER INH ×4 (01:29→19:43)
[2018-10-04] MEDS: IPRATROPIUM (HFA) 12.9 GM INHALER INH ×4 (01:29→19:43)
[2018-10-04] MEDS: ACCU-CHEK XX (01:57)
[2018-10-04] MEDS: MIDAZOLAM (DRIP) 50 mg/50 mL 50 ML IV ×3 (04:09→18:28)
[2018-10-04 05:13] LABS: ADD MAN DIFF? NO
[2018-10-04 05:20] LABS: BASOPHIL # 0.1 10^3/ul (0.0-0.1); BASOPHILS % 1.1 % (0.0-2.0); EOSINOPHILS % 0.1 % (0.0-7.0); HEMATOCRIT 44.9 % (42.0-52.0); HEMOGLOBIN 13.1 g/dl (14.0-18.0); LYMPHOCYTES # 1.2 10^3/ul (0.8-2.9); MEAN CORPUSCULAR HEMOGLOBIN 26.7 pg (29.0-33.0); MEAN CORPUSCULAR HGB CONC 29.2 g/dl (32.0-37.0); MEAN CORPUSCULAR VOLUME 91.6 fl (82.0-101.0); MEAN PLATELET VOLUME 11.2 fl (7.4-10.4); MONOCYTE # 0.8 10^3/ul (0.3-0.9); MONOCYTES % 9.1 % (0.0-11.0); NEUTROPHILS % 76.2 % (39.0-77.0); PLATELET COUNT 333 10^3/UL (140-415); RED CELL DISTRIBUTION WIDTH 17.5 % (11.5-14.5)
[2018-10-04 05:20] LABS: WHITE BLOOD COUNT 9.2 10^3/ul (4.8-10.8)
[2018-10-04] MEDS: FUROSEMIDE 40 MG INJ IV ×2 (05:59→17:25)
[2018-10-04] MEDS: FENTAnyl 1,000 MCG in SOD CHLORIDE 0.9% 80 ML IV ×2 (06:02→18:27)
[2018-10-04 06:07] LABS: BLOOD UREA NITROGEN 33 mg/dl (7-20); CALCIUM 9.6 mg/dl (8.4-10.2); CHLORIDE 94 mmol/L (97-110); CREATININE 0.63 mg/dl (0.61-1.24); Estimated GFR > 60 mL/min (>60); GLUCOSE 292 mg/dl (70-220); MAGNESIUM 2.3 mg/dl (1.7-2.5); PHOSPHORUS 4.7 mg/dl (2.5-4.9); POTASSIUM 4.8 mmol/L (3.5-5.1); SODIUM 143 mmol/L (135-144)
[2018-10-04 06:30] LABS: ANION GAP 8 (5-13); CARBON DIOXIDE 41 mmol/L (21-31)
[2018-10-04 08:08] LABS: AADO2 Arterial 369.7 mmHg (7.0-24.0); Allen Test ACCEPTAB; Arterial Base Excess 2.7 mmol/L (-3.0-3); Arterial COHb 0.9 % (0.0-3.0); Arterial Fraction of Oxyhgb 90.9 % (93.0-99.0); Arterial HCO3 29.7 mmol/L (22.0-26.0); Arterial MetHb 0.3 % (0.0-1.5); Arterial pCO2 55.4 mmhg (35-45); MODE VENT - AC; Site Right Radial
[2018-10-04] MEDS: CEFEPIME 2GM/50 ML (PMX) 50 ML IVPB ×2 (08:50→20:36)
[2018-10-04] MEDS: DOCUSATE SODIUM 10 MG/ML (10ML CUP) GTB ×2 (08:50→20:37)
[2018-10-04] MEDS: ENOXAPARIN 60 MG/0.6 ML SYG SC (08:54)
[2018-10-04] MEDS: NYSTATIN 30 GM POWDER BTL TOP ×2 (08:55→20:37)
[2018-10-04] MEDS: FAMOTIDINE 20 MG INJ IV ×2 (13:28→20:37)
[2018-10-04] MEDS: INSULIN GLARGINE [LANTus] (100 UNITS/ML) SYG SC (20:39)
[2018-10-04] MEDS: METOCLOPRAMIDE 10 MG INJ IV (21:49)
[2018-10-04] MEDS: LORAZEPAM 2 MG INJ IV (23:28)
[2018-10-05] MEDS: METHYLPREDNISOLONE 40 MG INJ IV ×5 (00:05→23:50)
[2018-10-05] MEDS: MIDAZOLAM (DRIP) 50 mg/50 mL 50 ML IV ×5 (00:05→20:57)
[2018-10-05] MEDS: INSULIN ASPART [NOVOLOG] 3 ML PEN SC ×6 (00:09→21:42)
[2018-10-05] MEDS: LORAZEPAM 2 MG INJ IV (00:46)
[2018-10-05 02:21] LABS: AADO2 Arterial 438.1 mmHg (7.0-24.0); Allen Test ACCEPTAB; Arterial Blood Gas Oxygen Sat 98.9 mmHG (95.0-98.0); Arterial COHb 0.6 % (0.0-3.0); Arterial Fraction of Oxyhgb 97.9 % (93.0-99.0); Arterial HCO3 46.1 mmol/L (22.0-26.0); Arterial MetHb 0.4 % (0.0-1.5); Arterial pCO2 101.2 mmhg (35-45); MODE VENT - PC; Site Right Radial
[2018-10-05] MEDS: ACCU-CHEK XX (02:54)
[2018-10-05] MEDS: ALBUTEROL HFA 8 GM INHALER INH ×4 (03:12→19:44)
[2018-10-05] MEDS: IPRATROPIUM (HFA) 12.9 GM INHALER INH ×4 (03:12→19:45)
[2018-10-05] MEDS: FENTAnyl 1,000 MCG in SOD CHLORIDE 0.9% 80 ML IV ×2 (04:27→17:14)
[2018-10-05] MEDS: FUROSEMIDE 40 MG INJ IV ×2 (05:24→18:07)
[2018-10-05 07:35] LABS: AADO2 Arterial 347.3 mmHg (7.0-24.0); Allen Test ACCEPTAB; Arterial Blood Gas Oxygen Sat 94.3 mmHG (95.0-98.0); Arterial COHb 0.5 % (0.0-3.0); Arterial Fraction of Oxyhgb 93.6 % (93.0-99.0); Arterial HCO3 44.6 mmol/L (22.0-26.0); Arterial MetHb 0.2 % (0.0-1.5); Arterial pCO2 72.7 mmhg (35-45); MODE VENT - AC; Site Left Radial
[2018-10-05] MEDS: FAMOTIDINE 20 MG INJ IV ×2 (09:25→21:40)
[2018-10-05] MEDS: DOCUSATE SODIUM 10 MG/ML (10ML CUP) GTB ×2 (09:25→21:39)
[2018-10-05] MEDS: CEFEPIME 2GM/50 ML (PMX) 50 ML IVPB ×2 (09:25→21:40)
[2018-10-05] MEDS: ENOXAPARIN 60 MG/0.6 ML SYG SC (09:30)
[2018-10-05] MEDS: NYSTATIN 30 GM POWDER BTL TOP ×2 (09:32→21:39)
[2018-10-05 17:46] LABS: BLOOD UREA NITROGEN 40 mg/dl (7-20); CALCIUM 9.9 mg/dl (8.4-10.2); CHLORIDE 94 mmol/L (97-110); CREATININE 0.63 mg/dl (0.61-1.24); Estimated GFR > 60 mL/min (>60); GLUCOSE 233 mg/dl (70-220); MAGNESIUM 2.2 mg/dl (1.7-2.5); POTASSIUM 4.6 mmol/L (3.5-5.1); SODIUM 144 mmol/L (135-144)
[2018-10-05 18:02] LABS: ANION GAP 6 (5-13); CARBON DIOXIDE 44 mmol/L (21-31)
[2018-10-05] MEDS: INSULIN GLARGINE [LANTus] (100 UNITS/ML) SYG SC (20:28)
[2018-10-06] MEDS: FENTAnyl 1,000 MCG in SOD CHLORIDE 0.9% 80 ML IV ×3 (00:47→21:22)
[2018-10-06] MEDS: INSULIN ASPART [NOVOLOG] 3 ML PEN SC ×6 (01:10→21:21)
[2018-10-06] MEDS: IPRATROPIUM (HFA) 12.9 GM INHALER INH ×5 (01:27→20:45)
[2018-10-06] MEDS: ALBUTEROL HFA 8 GM INHALER INH ×5 (01:27→20:45)
[2018-10-06] MEDS: MIDAZOLAM (DRIP) 50 mg/50 mL 50 ML IV ×5 (01:44→23:03)
[2018-10-06] MEDS: ACCU-CHEK XX (02:00)
[2018-10-06 05:10] LABS: ADD MAN DIFF? NO
[2018-10-06 05:15] LABS: WHITE BLOOD COUNT 10.6 10^3/ul (4.8-10.8)
[2018-10-06 05:15] LABS: BASOPHIL # 0.1 10^3/ul (0.0-0.1); BASOPHILS % 0.5 % (0.0-2.0); EOSINOPHILS % 0.2 % (0.0-7.0); HEMATOCRIT 45.7 % (42.0-52.0); HEMOGLOBIN 13.9 g/dl (14.0-18.0); LYMPHOCYTES # 1.3 10^3/ul (0.8-2.9); LYMPHOCYTES % 12.7 % (15.0-51.0); MEAN CORPUSCULAR HEMOGLOBIN 27.1 pg (29.0-33.0); MEAN CORPUSCULAR HGB CONC 30.4 g/dl (32.0-37.0); MEAN CORPUSCULAR VOLUME 89.1 fl (82.0-101.0); MEAN PLATELET VOLUME 12.3 fl (7.4-10.4); MONOCYTE # 0.9 10^3/ul (0.3-0.9); MONOCYTES % 8.3 % (0.0-11.0); NEUTROPHIL # 8.2 10^3/ul (1.6-7.5); NEUTROPHILS % 77.6 % (39.0-77.0); PLATELET COUNT 261 10^3/UL (140-415); RED BLOOD COUNT 5.13 10^6/ul (4.70-6.10); RED CELL DISTRIBUTION WIDTH 17.5 % (11.5-14.5)
[2018-10-06 05:38] LABS: ALBUMIN 3.3 g/dl (3.3-4.9); BLOOD UREA NITROGEN 43 mg/dl (7-20); CALCIUM 9.9 mg/dl (8.4-10.2); CHLORIDE 95 mmol/L (97-110); CREATININE 0.57 mg/dl (0.61-1.24); GLUCOSE 236 mg/dl (70-220); MAGNESIUM 2.2 mg/dl (1.7-2.5); PHOSPHORUS 5.9 mg/dl (2.5-4.9); POTASSIUM 4.7 mmol/L (3.5-5.1); SODIUM 146 mmol/L (135-144)
[2018-10-06 05:44] LABS: ANION GAP 12 (5-13)
[2018-10-06 05:46] LABS: CARBON DIOXIDE 39 mmol/L (21-31)
[2018-10-06] MEDS: METHYLPREDNISOLONE 40 MG INJ IV ×4 (05:59→23:46)
[2018-10-06] MEDS: FUROSEMIDE 40 MG INJ IV ×2 (05:59→17:08)
[2018-10-06] MEDS: DOCUSATE SODIUM 10 MG/ML (10ML CUP) GTB ×2 (08:01→21:18)
[2018-10-06] MEDS: NYSTATIN 30 GM POWDER BTL TOP ×2 (08:04→21:20)
[2018-10-06] MEDS: FAMOTIDINE 20 MG INJ IV ×2 (08:04→21:18)
[2018-10-06] MEDS: ENOXAPARIN 60 MG/0.6 ML SYG SC (08:06)
[2018-10-06] MEDS: CEFEPIME 2GM/50 ML (PMX) 50 ML IVPB ×2 (08:07→21:18)
[2018-10-06] MEDS: LISINOPRIL 20 MG TAB NGT (10:21)
[2018-10-06] MEDS: HYDROmorphONE 0.5 MG/0.5 ML SYG IV (15:27)
[2018-10-06] MEDS: INSULIN GLARGINE [LANTus] (100 UNITS/ML) SYG SC (20:20)
[2018-10-06] MEDS: LORAZEPAM 2 MG INJ IV (23:46)
[2018-10-07] MEDS: INSULIN ASPART [NOVOLOG] 3 ML PEN SC ×6 (01:28→21:08)
[2018-10-07] MEDS: ACCU-CHEK XX (02:00)
[2018-10-07] MEDS: IPRATROPIUM (HFA) 12.9 GM INHALER INH ×4 (02:23→20:21)
[2018-10-07] MEDS: ALBUTEROL HFA 8 GM INHALER INH ×4 (02:23→20:20)
[2018-10-07] MEDS: LORAZEPAM 2 MG INJ IV (03:53)
[2018-10-07] MEDS: MIDAZOLAM (DRIP) 50 mg/50 mL 50 ML IV ×4 (04:19→21:56)
[2018-10-07 05:04] LABS: ALBUMIN 3.1 g/dl (3.3-4.9); BLOOD UREA NITROGEN 39 mg/dl (7-20); CALCIUM 9.6 mg/dl (8.4-10.2); CHLORIDE 96 mmol/L (97-110); CREATININE 0.61 mg/dl (0.61-1.24); GLUCOSE 234 mg/dl (70-220); MAGNESIUM 2.3 mg/dl (1.7-2.5); PHOSPHORUS 4.7 mg/dl (2.5-4.9); POTASSIUM 4.2 mmol/L (3.5-5.1); SODIUM 146 mmol/L (135-144)
[2018-10-07 05:15] LABS: ANION GAP 7 (5-13); CARBON DIOXIDE 43 mmol/L (21-31)
[2018-10-07] MEDS: FUROSEMIDE 40 MG INJ IV ×2 (05:30→17:57)
[2018-10-07] MEDS: METHYLPREDNISOLONE 40 MG INJ IV ×3 (05:30→17:56)
[2018-10-07] MEDS: FENTAnyl 1,000 MCG in SOD CHLORIDE 0.9% 80 ML IV ×2 (09:01→20:48)
[2018-10-07] MEDS: FAMOTIDINE 20 MG INJ IV (09:07)
[2018-10-07] MEDS: DOCUSATE SODIUM 10 MG/ML (10ML CUP) GTB ×2 (09:07→20:58)
[2018-10-07] MEDS: CEFEPIME 2GM/50 ML (PMX) 50 ML IVPB ×2 (09:07→20:59)
[2018-10-07] MEDS: LISINOPRIL 20 MG TAB NGT (09:08)
[2018-10-07] MEDS: NYSTATIN 30 GM POWDER BTL TOP ×2 (09:08→21:06)
[2018-10-07] MEDS: ENOXAPARIN 60 MG/0.6 ML SYG SC (09:09)
[2018-10-07] MEDS: INSULIN GLARGINE [LANTus] (100 UNITS/ML) SYG SC ×2 (13:38→22:25)
[2018-10-07] MEDS: BISACODYL 10 MG SUPP PR (13:52)
[2018-10-07] MEDS: LORAZEPAM 1 MG TAB GTB (14:52)
[2018-10-07] MEDS: HYDROmorphONE 0.5 MG/0.5 ML SYG IV ×2 (15:07→21:14)
[2018-10-07] MEDS: FAMOTIDINE 20 MG TAB GTB (20:58)
[2018-10-08] MEDS: METHYLPREDNISOLONE 40 MG INJ IV ×4 (00:37→17:25)
[2018-10-08] MEDS: HYDROmorphONE 0.5 MG/0.5 ML SYG IV (01:27)
[2018-10-08] MEDS: INSULIN ASPART [NOVOLOG] 3 ML PEN SC ×6 (01:56→19:59)
[2018-10-08] MEDS: IPRATROPIUM (HFA) 12.9 GM INHALER INH ×4 (02:19→19:38)
[2018-10-08] MEDS: ALBUTEROL HFA 8 GM INHALER INH ×4 (02:19→19:38)
[2018-10-08] MEDS: ACCU-CHEK XX (02:49)
[2018-10-08] MEDS: MIDAZOLAM (DRIP) 50 mg/50 mL 50 ML IV ×4 (03:00→20:01)
[2018-10-08 04:40] LABS: ADD MAN DIFF? NO
[2018-10-08 04:43] LABS: BASOPHILS % 0.2 % (0.0-2.0); EOSINOPHILS # 0.1 10^3/ul (0.0-0.5); EOSINOPHILS % 0.5 % (0.0-7.0); HEMATOCRIT 44.8 % (42.0-52.0); HEMOGLOBIN 13.6 g/dl (14.0-18.0); LYMPHOCYTES # 1.4 10^3/ul (0.8-2.9); LYMPHOCYTES % 13.1 % (15.0-51.0); MEAN CORPUSCULAR HEMOGLOBIN 26.8 pg (29.0-33.0); MEAN CORPUSCULAR HGB CONC 30.4 g/dl (32.0-37.0); MEAN CORPUSCULAR VOLUME 88.4 fl (82.0-101.0); MEAN PLATELET VOLUME 11.8 fl (7.4-10.4); MONOCYTE # 0.8 10^3/ul (0.3-0.9); MONOCYTES % 8.1 % (0.0-11.0); NEUTROPHIL # 8.1 10^3/ul (1.6-7.5); NEUTROPHILS % 77.5 % (39.0-77.0); PLATELET COUNT 357 10^3/UL (140-415); RED BLOOD COUNT 5.07 10^6/ul (4.70-6.10); RED CELL DISTRIBUTION WIDTH 18.1 % (11.5-14.5)
[2018-10-08 04:43] LABS: WHITE BLOOD COUNT 10.4 10^3/ul (4.8-10.8)
[2018-10-08 05:06] LABS: BLOOD UREA NITROGEN 35 mg/dl (7-20); CALCIUM 9.5 mg/dl (8.4-10.2); CHLORIDE 93 mmol/L (97-110); CREATININE 0.66 mg/dl (0.61-1.24); Estimated GFR > 60 mL/min (>60); GLUCOSE 206 mg/dl (70-220); MAGNESIUM 2.3 mg/dl (1.7-2.5); PHOSPHORUS 4.3 mg/dl (2.5-4.9); POTASSIUM 3.9 mmol/L (3.5-5.1); SODIUM 145 mmol/L (135-144)
[2018-10-08 05:19] LABS: ANION GAP 11 (5-13); CARBON DIOXIDE 41 mmol/L (21-31)
[2018-10-08] MEDS: FUROSEMIDE 40 MG INJ IV ×2 (05:37→17:25)
[2018-10-08] MEDS: FENTAnyl 1,000 MCG in SOD CHLORIDE 0.9% 80 ML IV ×2 (07:22→23:49)
[2018-10-08 08:22] LABS: AADO2 Arterial 289.2 mmHg (7.0-24.0); Allen Test ACCEPTAB; Arterial Base Excess 17.8 mmol/L (-3.0-3); Arterial COHb 1.3 % (0.0-3.0); Arterial Fraction of Oxyhgb 91.7 % (93.0-99.0); Arterial HCO3 45.5 mmol/L (22.0-26.0); Arterial MetHb 0.1 % (0.0-1.5); Arterial pCO2 64.2 mmhg (35-45); MODE VENT - AC; Site Right Radial
[2018-10-08] MEDS: LISINOPRIL 20 MG TAB NGT (08:54)
[2018-10-08] MEDS: INSULIN GLARGINE [LANTus] (100 UNITS/ML) SYG SC ×2 (08:54→20:00)
[2018-10-08] MEDS: FAMOTIDINE 20 MG TAB GTB ×2 (08:54→20:54)
[2018-10-08] MEDS: CEFEPIME 2GM/50 ML (PMX) 50 ML IVPB ×2 (08:54→21:52)
[2018-10-08] MEDS: DOCUSATE SODIUM 10 MG/ML (10ML CUP) GTB ×2 (08:55→20:54)
[2018-10-08] MEDS: ENOXAPARIN 60 MG/0.6 ML SYG SC (08:55)
[2018-10-08] MEDS: NYSTATIN 30 GM POWDER BTL TOP ×2 (08:55→21:02)
[2018-10-08] MEDS: PROPOFOL 100 ML IV ×3 (08:57→20:57)
[2018-10-08 22:07] LABS: AADO2 Arterial 180.4 mmHg (7.0-24.0); Allen Test ACCEPTAB; Arterial Base Excess 16.4 mmol/L (-3.0-3); Arterial Blood Gas Oxygen Sat 95.2 mmHG (95.0-98.0); Arterial COHb 0.8 % (0.0-3.0); Arterial Fraction of Oxyhgb 94.2 % (93.0-99.0); Arterial HCO3 46.5 mmol/L (22.0-26.0); Arterial MetHb 0.2 % (0.0-1.5); Arterial pCO2 82.8 mmhg (35-45); MODE VENT - PC; Site Right Radial
[2018-10-09] MEDS: METHYLPREDNISOLONE 40 MG INJ IV ×4 (00:19→18:17)
[2018-10-09] MEDS: PROPOFOL 100 ML IV ×5 (00:20→22:13)
[2018-10-09] MEDS: hydrALAzine 20 MG INJ IV ×2 (00:21→13:30)
[2018-10-09] MEDS: INSULIN ASPART [NOVOLOG] 3 ML PEN SC ×6 (00:26→20:23)
[2018-10-09] MEDS: ALBUTEROL HFA 8 GM INHALER INH ×4 (01:07→19:39)
[2018-10-09] MEDS: IPRATROPIUM (HFA) 12.9 GM INHALER INH ×4 (01:07→19:38)
[2018-10-09] MEDS: ACCU-CHEK XX (02:00)
[2018-10-09] MEDS: ACETYLCYSTEINE 20% 4 ML VIAL NEB ×4 (02:43→19:39)
[2018-10-09 03:56] LABS: BLOOD UREA NITROGEN 30 mg/dl (7-20); CALCIUM 9.7 mg/dl (8.4-10.2); CHLORIDE 93 mmol/L (97-110); CREATININE 0.51 mg/dl (0.61-1.24); Estimated GFR > 60 mL/min (>60); GLUCOSE 217 mg/dl (70-220); POTASSIUM 3.7 mmol/L (3.5-5.1); SODIUM 147 mmol/L (135-144)
[2018-10-09 04:19] LABS: ANION GAP 12 (5-13); CARBON DIOXIDE 42 mmol/L (21-31)
[2018-10-09] MEDS: FUROSEMIDE 40 MG INJ IV ×2 (05:08→18:17)
[2018-10-09] MEDS: MIDAZOLAM (DRIP) 50 mg/50 mL 50 ML IV ×2 (05:19→14:00)
[2018-10-09] MEDS: DOCUSATE SODIUM 10 MG/ML (10ML CUP) GTB ×2 (09:20→20:24)
[2018-10-09] MEDS: ENOXAPARIN 60 MG/0.6 ML SYG SC (09:21)
[2018-10-09] MEDS: FAMOTIDINE 20 MG TAB GTB ×2 (09:22→20:24)
[2018-10-09] MEDS: LISINOPRIL 20 MG TAB NGT (09:22)
[2018-10-09] MEDS: CEFEPIME 2GM/50 ML (PMX) 50 ML IVPB ×2 (09:28→20:28)
[2018-10-09] MEDS: NA PHOSPHATE/BIPHOS 133 ML ENEMA PR (09:28)
[2018-10-09] MEDS: BISACODYL 10 MG SUPP PR (09:28)
[2018-10-09] MEDS: NYSTATIN 30 GM POWDER BTL TOP ×2 (09:30→20:28)
[2018-10-09] MEDS: INSULIN GLARGINE [LANTus] (100 UNITS/ML) SYG SC ×2 (09:30→20:21)
[2018-10-09] MEDS ORDERED: DEXMEDETOMIDINE HCL 200 MCG in SOD CHLORIDE 0.9% 48 ML IV (10:00)
[2018-10-09 10:55] LABS: AADO2 Arterial 342.9 mmHg (7.0-24.0); Allen Test ACCEPTAB; Arterial Base Excess 15.3 mmol/L (-3.0-3); Arterial Blood Gas Oxygen Sat 96.7 mmHG (95.0-98.0); Arterial COHb 0.8 % (0.0-3.0); Arterial Fraction of Oxyhgb 95.7 % (93.0-99.0); Arterial HCO3 42.9 mmol/L (22.0-26.0); Arterial MetHb 0.2 % (0.0-1.5); Arterial pCO2 63.6 mmhg (35-45); MODE VENT - PC; Site Right Radial
[2018-10-09] MEDS: LORAZEPAM 1 MG TAB GTB ×2 (13:00→20:26)
[2018-10-09] MEDS: FENTAnyl 1,000 MCG in SOD CHLORIDE 0.9% 80 ML IV ×2 (14:00→23:25)
[2018-10-10] MEDS: PROPOFOL 100 ML IV ×13 (00:46→23:41)
[2018-10-10] MEDS: METHYLPREDNISOLONE 40 MG INJ IV ×5 (00:46→23:40)
[2018-10-10] MEDS: INSULIN ASPART [NOVOLOG] 3 ML PEN SC ×6 (01:21→20:15)
[2018-10-10] MEDS: IPRATROPIUM (HFA) 12.9 GM INHALER INH ×4 (01:27→19:23)
[2018-10-10] MEDS: ACETYLCYSTEINE 20% 4 ML VIAL NEB ×4 (01:27→19:23)
[2018-10-10] MEDS: ALBUTEROL HFA 8 GM INHALER INH ×4 (01:27→19:23)
[2018-10-10] MEDS: ACCU-CHEK XX (02:00)
[2018-10-10] MEDS: FUROSEMIDE 40 MG INJ IV ×2 (05:15→17:41)
[2018-10-10 08:15] LABS: ADD MAN DIFF? NO
[2018-10-10 08:20] LABS: AADO2 Arterial 283.8 mmHg (7.0-24.0); Allen Test ACCEPTAB; Arterial Base Excess 15.5 mmol/L (-3.0-3); Arterial Blood Gas Oxygen Sat 98.4 mmHG (95.0-98.0); Arterial COHb 0.9 % (0.0-3.0); Arterial Fraction of Oxyhgb 97.4 % (93.0-99.0); Arterial HCO3 43.5 mmol/L (22.0-26.0); Arterial MetHb 0.1 % (0.0-1.5); Arterial pCO2 66.6 mmhg (35-45); MODE VENT - PC; Site Left Radial
[2018-10-10] MEDS: LISINOPRIL 20 MG TAB NGT (08:22)
[2018-10-10] MEDS: FAMOTIDINE 20 MG TAB GTB ×2 (08:22→20:13)
[2018-10-10] MEDS: DOCUSATE SODIUM 10 MG/ML (10ML CUP) GTB ×2 (08:22→20:13)
[2018-10-10 08:23] LABS: WHITE BLOOD COUNT 11.3 10^3/ul (4.8-10.8)
[2018-10-10 08:23] LABS: BASOPHILS % 0.1 % (0.0-2.0); EOSINOPHILS % 0.1 % (0.0-7.0); HEMATOCRIT 45.8 % (42.0-52.0); HEMOGLOBIN 13.6 g/dl (14.0-18.0); LYMPHOCYTES % 8.4 % (15.0-51.0); MEAN CORPUSCULAR HEMOGLOBIN 26.4 pg (29.0-33.0); MEAN CORPUSCULAR HGB CONC 29.7 g/dl (32.0-37.0); MEAN CORPUSCULAR VOLUME 88.9 fl (82.0-101.0); MEAN PLATELET VOLUME 11.7 fl (7.4-10.4); MONOCYTE # 0.6 10^3/ul (0.3-0.9); NEUTROPHIL # 9.7 10^3/ul (1.6-7.5); NEUTROPHILS % 85.9 % (39.0-77.0); PLATELET COUNT 356 10^3/UL (140-415); RED BLOOD COUNT 5.15 10^6/ul (4.70-6.10); RED CELL DISTRIBUTION WIDTH 17.8 % (11.5-14.5)
[2018-10-10] MEDS: NYSTATIN 30 GM POWDER BTL TOP ×2 (08:23→20:13)
[2018-10-10] MEDS: INSULIN GLARGINE [LANTus] (100 UNITS/ML) SYG SC ×2 (08:25→20:15)
[2018-10-10] MEDS: ENOXAPARIN 60 MG/0.6 ML SYG SC (08:27)
[2018-10-10 08:39] LABS: ALANINE AMINOTRANSFERASE 26 IU/L (13-69); ALBUMIN 3.2 g/dl (3.3-4.9); ALBUMIN/GLOBULIN RATIO 0.96; ALKALINE PHOSPHATASE 96 IU/L (42-121); ASPARTATE AMINO TRANSFERASE 18 IU/L (15-46); BILIRUBIN,INDIRECT 0.5 mg/dl (0-1.1); BILIRUBIN,TOTAL 0.5 mg/dl (0.2-1.3); BLOOD UREA NITROGEN 26 mg/dl (7-20); CALCIUM 9.2 mg/dl (8.4-10.2); CHLORIDE 93 mmol/L (97-110); Estimated GFR > 60 mL/min (>60); GLUCOSE 179 mg/dl (70-220); POTASSIUM 3.8 mmol/L (3.5-5.1); SODIUM 143 mmol/L (135-144); TOTAL PROTEIN 6.5 g/dl (6.1-8.1)
[2018-10-10 08:56] LABS: ANION GAP 7 (5-13); CARBON DIOXIDE 43 mmol/L (21-31)
[2018-10-10] MEDS: FENTAnyl 1,000 MCG in SOD CHLORIDE 0.9% 80 ML IV ×2 (09:10→19:13)
[2018-10-11] MEDS: INSULIN ASPART [NOVOLOG] 3 ML PEN SC ×6 (00:18→20:36)
[2018-10-11] MEDS: ACETYLCYSTEINE 20% 4 ML VIAL NEB ×4 (01:20→19:32)
[2018-10-11] MEDS: IPRATROPIUM (HFA) 12.9 GM INHALER INH ×4 (01:20→19:32)
[2018-10-11] MEDS: ALBUTEROL HFA 8 GM INHALER INH ×4 (01:20→19:32)
[2018-10-11] MEDS: ACCU-CHEK XX (02:00)
[2018-10-11] MEDS: PROPOFOL 100 ML IV ×9 (02:57→22:15)
[2018-10-11] MEDS: hydrALAzine 20 MG INJ IV (04:22)
[2018-10-11 04:53] LABS: ADD MAN DIFF? NO
[2018-10-11 05:00] LABS: BASOPHILS % 0.1 % (0.0-2.0); EOSINOPHILS % 0.1 % (0.0-7.0); HEMATOCRIT 48.7 % (42.0-52.0); HEMOGLOBIN 14.4 g/dl (14.0-18.0); LYMPHOCYTES # 2.1 10^3/ul (0.8-2.9); LYMPHOCYTES % 15.6 % (15.0-51.0); MEAN CORPUSCULAR HEMOGLOBIN 26.4 pg (29.0-33.0); MEAN CORPUSCULAR HGB CONC 29.6 g/dl (32.0-37.0); MEAN CORPUSCULAR VOLUME 89.2 fl (82.0-101.0); MONOCYTE # 1.1 10^3/ul (0.3-0.9); MONOCYTES % 8.3 % (0.0-11.0); NEUTROPHIL # 10.3 10^3/ul (1.6-7.5); NEUTROPHILS % 75.3 % (39.0-77.0); PLATELET COUNT 398 10^3/UL (140-415); RED BLOOD COUNT 5.46 10^6/ul (4.70-6.10); RED CELL DISTRIBUTION WIDTH 17.5 % (11.5-14.5)
[2018-10-11 05:00] LABS: WHITE BLOOD COUNT 13.6 10^3/ul (4.8-10.8)
[2018-10-11] MEDS: METHYLPREDNISOLONE 40 MG INJ IV ×4 (05:19→23:37)
[2018-10-11] MEDS: FUROSEMIDE 40 MG INJ IV ×2 (05:21→17:59)
[2018-10-11 05:37] LABS: BLOOD UREA NITROGEN 23 mg/dl (7-20); CALCIUM 9.2 mg/dl (8.4-10.2); CHLORIDE 90 mmol/L (97-110); CREATININE 0.49 mg/dl (0.61-1.24); Estimated GFR > 60 mL/min (>60); GLUCOSE 184 mg/dl (70-220); POTASSIUM 3.6 mmol/L (3.5-5.1); SODIUM 144 mmol/L (135-144)
[2018-10-11 05:53] LABS: ANION GAP 9 (5-13); CARBON DIOXIDE 45 mmol/L (21-31)
[2018-10-11] MEDS: DOCUSATE SODIUM 10 MG/ML (10ML CUP) GTB ×2 (08:48→20:37)
[2018-10-11] MEDS: LISINOPRIL 20 MG TAB NGT (08:49)
[2018-10-11] MEDS: FAMOTIDINE 20 MG TAB GTB ×2 (08:49→20:38)
[2018-10-11] MEDS: MIDAZOLAM (DRIP) 50 mg/50 mL 50 ML IV ×3 (08:49→20:13)
[2018-10-11] MEDS: NYSTATIN 30 GM POWDER BTL TOP ×2 (08:50→20:38)
[2018-10-11 08:51] LABS: Allen Test ACCEPTAB; Arterial Base Excess 14.4 mmol/L (-3.0-3); Arterial COHb 0.8 % (0.0-3.0); Arterial Fraction of Oxyhgb 95.9 % (93.0-99.0); Arterial HCO3 45.1 mmol/L (22.0-26.0); Arterial MetHb 0.3 % (0.0-1.5); Arterial pCO2 85.4 mmhg (35-45); MODE VENT - PC; Site Left Radial
[2018-10-11] MEDS: ENOXAPARIN 60 MG/0.6 ML SYG SC (08:53)
[2018-10-11] MEDS: FENTAnyl 1,000 MCG in SOD CHLORIDE 0.9% 80 ML IV ×2 (08:53→20:59)
[2018-10-11] MEDS: INSULIN GLARGINE [LANTus] (100 UNITS/ML) SYG SC ×2 (08:54→20:35)
[2018-10-11] MEDS: LIDOCAINE 1% (MDV) 20 ML INJ SC (11:15)
[2018-10-11] MEDS: LACTULOSE 30ML CUP PO ×2 (13:36→20:37)
[2018-10-12] MEDS: INSULIN ASPART [NOVOLOG] 3 ML PEN SC ×6 (01:01→20:57)
[2018-10-12] MEDS: ACCU-CHEK XX (01:03)
[2018-10-12] MEDS: ACETYLCYSTEINE 20% 4 ML VIAL NEB ×4 (01:21→20:34)
[2018-10-12] MEDS: IPRATROPIUM (HFA) 12.9 GM INHALER INH ×4 (01:21→20:34)
[2018-10-12] MEDS: ALBUTEROL HFA 8 GM INHALER INH ×4 (01:21→20:34)
[2018-10-12] MEDS: PROPOFOL 100 ML IV ×8 (01:35→21:31)
[2018-10-12] MEDS: MIDAZOLAM (DRIP) 50 mg/50 mL 50 ML IV ×3 (04:41→18:16)
[2018-10-12] MEDS: FENTAnyl 1,000 MCG in SOD CHLORIDE 0.9% 80 ML IV ×2 (04:59→14:04)
[2018-10-12 05:30] LABS: ADD MAN DIFF? NO
[2018-10-12] MEDS: METHYLPREDNISOLONE 40 MG INJ IV ×3 (05:30→18:14)
[2018-10-12] MEDS: FUROSEMIDE 40 MG INJ IV ×2 (05:30→18:14)
[2018-10-12 05:51] LABS: BASOPHILS % 0.1 % (0.0-2.0); EOSINOPHILS % 0.2 % (0.0-7.0); HEMATOCRIT 47.6 % (42.0-52.0); HEMOGLOBIN 14.3 g/dl (14.0-18.0); LYMPHOCYTES # 1.9 10^3/ul (0.8-2.9); MEAN CORPUSCULAR HEMOGLOBIN 26.5 pg (29.0-33.0); MEAN CORPUSCULAR VOLUME 88.3 fl (82.0-101.0); MEAN PLATELET VOLUME 12.7 fl (7.4-10.4); MONOCYTE # 0.9 10^3/ul (0.3-0.9); MONOCYTES % 8.4 % (0.0-11.0); NEUTROPHILS % 73.8 % (39.0-77.0); PLATELET COUNT 373 10^3/UL (140-415); RED BLOOD COUNT 5.39 10^6/ul (4.70-6.10); RED CELL DISTRIBUTION WIDTH 18.3 % (11.5-14.5)
[2018-10-12 05:51] LABS: WHITE BLOOD COUNT 10.9 10^3/ul (4.8-10.8)
[2018-10-12 05:59] LABS: TRIGLYCERIDES 167 mg/dl (0-149)
[2018-10-12 06:02] LABS: BLOOD UREA NITROGEN 25 mg/dl (7-20); CHLORIDE 92 mmol/L (97-110); CREATININE 0.42 mg/dl (0.61-1.24); Estimated GFR > 60 mL/min (>60); GLUCOSE 233 mg/dl (70-220); POTASSIUM 3.9 mmol/L (3.5-5.1); SODIUM 141 mmol/L (135-144)
[2018-10-12 06:09] LABS: ANION GAP 11 (5-13)
[2018-10-12 06:11] LABS: CARBON DIOXIDE 38 mmol/L (21-31)
[2018-10-12] MEDS: LISINOPRIL 20 MG TAB NGT (08:36)
[2018-10-12] MEDS: DOCUSATE SODIUM 10 MG/ML (10ML CUP) GTB ×2 (08:36→20:53)
[2018-10-12] MEDS: FAMOTIDINE 20 MG TAB GTB ×2 (08:36→20:54)
[2018-10-12] MEDS: LACTULOSE 30ML CUP PO ×2 (08:37→18:15)
[2018-10-12] MEDS: ENOXAPARIN 60 MG/0.6 ML SYG SC (08:38)
[2018-10-12] MEDS: NYSTATIN 30 GM POWDER BTL TOP ×2 (08:38→20:54)
[2018-10-12] MEDS: INSULIN GLARGINE [LANTus] (100 UNITS/ML) SYG SC ×2 (08:43→20:25)
[2018-10-12 10:21] LABS: AADO2 Arterial 199.3 mmHg (7.0-24.0); Allen Test ACCEPTAB; Arterial Base Excess 14.9 mmol/L (-3.0-3); Arterial COHb 0.7 % (0.0-3.0); Arterial Fraction of Oxyhgb 90.2 % (93.0-99.0); Arterial HCO3 44.7 mmol/L (22.0-26.0); Arterial MetHb 0.2 % (0.0-1.5); Blood Gas PS 15; MODE VENT - SIMV; Site Left Radial
[2018-10-13] MEDS: MIDAZOLAM (DRIP) 50 mg/50 mL 50 ML IV ×3 (00:16→19:15)
[2018-10-13] MEDS: PROPOFOL 100 ML IV ×10 (00:18→21:52)
[2018-10-13] MEDS: METHYLPREDNISOLONE 40 MG INJ IV ×4 (00:20→18:05)
[2018-10-13] MEDS: LACTULOSE 30ML CUP PO ×4 (00:22→18:07)
[2018-10-13] MEDS: IPRATROPIUM (HFA) 12.9 GM INHALER INH ×4 (01:23→20:13)
[2018-10-13] MEDS: ALBUTEROL HFA 8 GM INHALER INH ×4 (01:23→20:13)
[2018-10-13] MEDS: ACETYLCYSTEINE 20% 4 ML VIAL NEB ×4 (01:24→20:16)
[2018-10-13] MEDS: INSULIN ASPART [NOVOLOG] 3 ML PEN SC ×6 (01:50→21:21)
[2018-10-13] MEDS: FENTAnyl 1,000 MCG in SOD CHLORIDE 0.9% 80 ML IV ×2 (01:54→15:05)
[2018-10-13] MEDS: ACCU-CHEK XX (02:00)
[2018-10-13 05:21] LABS: ADD MAN DIFF? NO
[2018-10-13 05:29] LABS: WHITE BLOOD COUNT 12.6 10^3/ul (4.8-10.8)
[2018-10-13 05:29] LABS: BASOPHILS % 0.2 % (0.0-2.0); EOSINOPHILS % 0.1 % (0.0-7.0); HEMATOCRIT 49.3 % (42.0-52.0); HEMOGLOBIN 14.6 g/dl (14.0-18.0); LYMPHOCYTES # 1.5 10^3/ul (0.8-2.9); MEAN CORPUSCULAR HEMOGLOBIN 26.4 pg (29.0-33.0); MEAN CORPUSCULAR HGB CONC 29.6 g/dl (32.0-37.0); MEAN CORPUSCULAR VOLUME 89.2 fl (82.0-101.0); MEAN PLATELET VOLUME 12.3 fl (7.4-10.4); MONOCYTE # 0.7 10^3/ul (0.3-0.9); MONOCYTES % 5.7 % (0.0-11.0); NEUTROPHIL # 10.2 10^3/ul (1.6-7.5); NEUTROPHILS % 81.4 % (39.0-77.0); PLATELET COUNT 367 10^3/UL (140-415); RED BLOOD COUNT 5.53 10^6/ul (4.70-6.10); RED CELL DISTRIBUTION WIDTH 18.1 % (11.5-14.5)
[2018-10-13] MEDS: FUROSEMIDE 40 MG INJ IV (05:39)
[2018-10-13] MEDS: DEXTROSE 5%-0.45% NACL 1,000 ML IV ×2 (05:39→18:07)
[2018-10-13 05:58] LABS: BLOOD UREA NITROGEN 23 mg/dl (7-20); CALCIUM 8.9 mg/dl (8.4-10.2); CHLORIDE 90 mmol/L (97-110); CREATININE 0.43 mg/dl (0.61-1.24); Estimated GFR > 60 mL/min (>60); GLUCOSE 199 mg/dl (70-220); POTASSIUM 3.9 mmol/L (3.5-5.1); SODIUM 139 mmol/L (135-144)
[2018-10-13 06:03] LABS: INR 0.95; PROTIME 12.8 Sec (11.9-14.9)
[2018-10-13 06:04] LABS: PARTIAL THROMBOPLASTIN TIME 27.5 Sec (23.0-35.0)
[2018-10-13 06:10] LABS: ANION GAP 6 (5-13)
[2018-10-13 06:11] LABS: CARBON DIOXIDE 43 mmol/L (21-31)
[2018-10-13] MEDS: DOCUSATE SODIUM 10 MG/ML (10ML CUP) GTB ×2 (08:33→21:13)
[2018-10-13] MEDS: FAMOTIDINE 20 MG TAB GTB ×2 (08:34→21:13)
[2018-10-13] MEDS: LISINOPRIL 20 MG TAB NGT (08:34)
[2018-10-13] MEDS: INSULIN GLARGINE [LANTus] (100 UNITS/ML) SYG SC ×2 (08:36→20:19)
[2018-10-13] MEDS: ENOXAPARIN 60 MG/0.6 ML SYG SC (08:37)
[2018-10-13] MEDS: NYSTATIN 30 GM POWDER BTL TOP ×2 (08:43→21:14)
[2018-10-14] MEDS: METHYLPREDNISOLONE 40 MG INJ IV ×4 (00:07→17:31)
[2018-10-14] MEDS: PROPOFOL 100 ML IV ×7 (00:07→21:02)
[2018-10-14] MEDS: LACTULOSE 30ML CUP PO ×4 (00:08→17:31)
[2018-10-14] MEDS: INSULIN ASPART [NOVOLOG] 3 ML PEN SC ×6 (01:21→20:59)
[2018-10-14] MEDS: ACETYLCYSTEINE 20% 4 ML VIAL NEB ×4 (01:30→20:43)
[2018-10-14] MEDS: ALBUTEROL HFA 8 GM INHALER INH ×4 (01:30→20:43)
[2018-10-14] MEDS: IPRATROPIUM (HFA) 12.9 GM INHALER INH ×4 (01:30→20:43)
[2018-10-14] MEDS: MIDAZOLAM (DRIP) 50 mg/50 mL 50 ML IV ×3 (01:41→17:37)
[2018-10-14] MEDS: ACCU-CHEK XX (02:00)
[2018-10-14] MEDS: FENTAnyl 1,000 MCG in SOD CHLORIDE 0.9% 80 ML IV ×2 (04:34→21:31)
[2018-10-14] MEDS: DEXTROSE 5%-0.45% NACL 1,000 ML IV ×2 (05:32→19:41)
[2018-10-14 05:45] LABS: ADD MAN DIFF? NO
[2018-10-14 05:59] LABS: BASOPHILS % 0.2 % (0.0-2.0); EOSINOPHILS % 0.2 % (0.0-7.0); HEMATOCRIT 46.3 % (42.0-52.0); LYMPHOCYTES # 1.6 10^3/ul (0.8-2.9); LYMPHOCYTES % 13.3 % (15.0-51.0); MEAN CORPUSCULAR HEMOGLOBIN 26.8 pg (29.0-33.0); MEAN CORPUSCULAR HGB CONC 30.2 g/dl (32.0-37.0); MEAN CORPUSCULAR VOLUME 88.7 fl (82.0-101.0); MEAN PLATELET VOLUME 11.9 fl (7.4-10.4); MONOCYTES % 8.4 % (0.0-11.0); NEUTROPHIL # 9.3 10^3/ul (1.6-7.5); NEUTROPHILS % 77.2 % (39.0-77.0); PLATELET COUNT 372 10^3/UL (140-415); RED BLOOD COUNT 5.22 10^6/ul (4.70-6.10); RED CELL DISTRIBUTION WIDTH 17.9 % (11.5-14.5)
[2018-10-14 05:59] LABS: WHITE BLOOD COUNT 12.1 10^3/ul (4.8-10.8)
[2018-10-14 06:39] LABS: BLOOD UREA NITROGEN 18 mg/dl (7-20); CALCIUM 8.6 mg/dl (8.4-10.2); CHLORIDE 94 mmol/L (97-110); CREATININE 0.42 mg/dl (0.61-1.24); Estimated GFR > 60 mL/min (>60); GLUCOSE 205 mg/dl (70-220); POTASSIUM 3.9 mmol/L (3.5-5.1); SODIUM 138 mmol/L (135-144)
[2018-10-14 07:30] LABS: ANION GAP 3 (5-13); CARBON DIOXIDE 41 mmol/L (21-31)
[2018-10-14 08:42] LABS: AADO2 Arterial 125.9 mmHg (7.0-24.0); Allen Test ACCEPTAB; Arterial Blood Gas Oxygen Sat 88.8 mmHG (95.0-98.0); Arterial COHb 1.6 % (0.0-3.0); Arterial Fraction of Oxyhgb 87.3 % (93.0-99.0); Arterial HCO3 41.1 mmol/L (22.0-26.0); Arterial MetHb 0.1 % (0.0-1.5); Arterial pCO2 59.2 mmhg (35-45); Blood Gas PS 12; MODE VENT - PSV; Site Left Radial
[2018-10-14] MEDS: DOCUSATE SODIUM 10 MG/ML (10ML CUP) GTB ×2 (08:49→20:57)
[2018-10-14] MEDS: FAMOTIDINE 20 MG TAB GTB ×2 (08:49→20:57)
[2018-10-14] MEDS: LISINOPRIL 20 MG TAB NGT (08:49)
[2018-10-14] MEDS: ENOXAPARIN 60 MG/0.6 ML SYG SC (08:49)
[2018-10-14] MEDS: NYSTATIN 30 GM POWDER BTL TOP ×2 (08:50→21:01)
[2018-10-14] MEDS: INSULIN GLARGINE [LANTus] (100 UNITS/ML) SYG SC ×2 (08:51→21:01)
[2018-10-15] MEDS: METHYLPREDNISOLONE 40 MG INJ IV ×5 (00:06→23:46)
[2018-10-15] MEDS: LACTULOSE 30ML CUP PO ×5 (00:06→23:47)
[2018-10-15] MEDS: PROPOFOL 100 ML IV ×10 (00:08→23:07)
[2018-10-15] MEDS: MIDAZOLAM (DRIP) 50 mg/50 mL 50 ML IV ×4 (00:34→23:41)
[2018-10-15] MEDS: INSULIN ASPART [NOVOLOG] 3 ML PEN SC ×6 (01:14→21:06)
[2018-10-15] MEDS: IPRATROPIUM (HFA) 12.9 GM INHALER INH ×4 (01:25→19:49)
[2018-10-15] MEDS: ALBUTEROL HFA 8 GM INHALER INH ×4 (01:25→19:49)
[2018-10-15] MEDS: ACETYLCYSTEINE 20% 4 ML VIAL NEB ×4 (01:26→19:51)
[2018-10-15] MEDS: ACCU-CHEK XX (02:52)
[2018-10-15] MEDS: hydrALAzine 20 MG INJ IV (03:21)
[2018-10-15 05:25] LABS: ADD MAN DIFF? NO
[2018-10-15 05:27] LABS: BASOPHILS % 0.1 % (0.0-2.0); EOSINOPHILS % 0.1 % (0.0-7.0); HEMOGLOBIN 14.5 g/dl (14.0-18.0); LYMPHOCYTES # 1.7 10^3/ul (0.8-2.9); LYMPHOCYTES % 12.5 % (15.0-51.0); MEAN CORPUSCULAR HEMOGLOBIN 26.6 pg (29.0-33.0); MEAN CORPUSCULAR HGB CONC 30.9 g/dl (32.0-37.0); MEAN CORPUSCULAR VOLUME 86.1 fl (82.0-101.0); MEAN PLATELET VOLUME 11.6 fl (7.4-10.4); MONOCYTE # 1.2 10^3/ul (0.3-0.9); NEUTROPHIL # 10.6 10^3/ul (1.6-7.5); NEUTROPHILS % 77.3 % (39.0-77.0); PLATELET COUNT 368 10^3/UL (140-415); RED BLOOD COUNT 5.46 10^6/ul (4.70-6.10); RED CELL DISTRIBUTION WIDTH 18.6 % (11.5-14.5)
[2018-10-15 05:27] LABS: WHITE BLOOD COUNT 13.7 10^3/ul (4.8-10.8)
[2018-10-15 06:00] LABS: ANION GAP 3 (5-13); Estimated GFR > 60 mL/min (>60)
[2018-10-15 06:06] LABS: BLOOD UREA NITROGEN 16 mg/dl (7-20); CALCIUM 9.1 mg/dl (8.4-10.2); CHLORIDE 94 mmol/L (97-110); CREATININE 0.38 mg/dl (0.61-1.24); GLUCOSE 194 mg/dl (70-220); SODIUM 137 mmol/L (135-144)
[2018-10-15 06:08] LABS: CARBON DIOXIDE 40 mmol/L (21-31)
[2018-10-15] MEDS: INSULIN GLARGINE [LANTus] (100 UNITS/ML) SYG SC ×2 (09:30→20:14)
[2018-10-15] MEDS: ENOXAPARIN 60 MG/0.6 ML SYG SC (09:30)
[2018-10-15] MEDS: ALTEPLASE (CATHFLO) 2 MG INJ CATHETER (09:32)
[2018-10-15] MEDS: DOCUSATE SODIUM 10 MG/ML (10ML CUP) GTB ×2 (09:33→20:56)
[2018-10-15] MEDS: FAMOTIDINE 20 MG TAB GTB ×2 (09:33→20:56)
[2018-10-15] MEDS: NYSTATIN 30 GM POWDER BTL TOP ×2 (09:33→20:57)
[2018-10-15] MEDS: LISINOPRIL 20 MG TAB NGT (09:34)
[2018-10-15] MEDS: DEXTROSE 5%-0.45% NACL 1,000 ML IV ×2 (09:34→20:41)
[2018-10-15] MEDS: FENTAnyl 1,000 MCG in SOD CHLORIDE 0.9% 80 ML IV ×2 (10:15→22:31)
[2018-10-16] MEDS: INSULIN ASPART [NOVOLOG] 3 ML PEN SC ×6 (00:59→21:10)
[2018-10-16] MEDS: IPRATROPIUM (HFA) 12.9 GM INHALER INH ×4 (01:37→20:10)
[2018-10-16] MEDS: ACETYLCYSTEINE 20% 4 ML VIAL NEB ×4 (01:38→20:10)
[2018-10-16] MEDS: ALBUTEROL HFA 8 GM INHALER INH ×4 (01:38→20:10)
[2018-10-16] MEDS: PROPOFOL 100 ML IV ×9 (01:43→22:30)
[2018-10-16] MEDS: ACCU-CHEK XX (02:09)
[2018-10-16] MEDS: LACTULOSE 30ML CUP PO ×3 (05:31→17:23)
[2018-10-16] MEDS: METHYLPREDNISOLONE 40 MG INJ IV (05:31)
[2018-10-16] MEDS: MIDAZOLAM (DRIP) 50 mg/50 mL 50 ML IV ×3 (05:33→17:34)
[2018-10-16] MEDS: INSULIN GLARGINE [LANTus] (100 UNITS/ML) SYG SC ×2 (08:57→21:08)
[2018-10-16] MEDS: ENOXAPARIN 60 MG/0.6 ML SYG SC (08:59)
[2018-10-16] MEDS: DOCUSATE SODIUM 10 MG/ML (10ML CUP) GTB ×2 (08:59→21:07)
[2018-10-16] MEDS: FAMOTIDINE 20 MG TAB GTB ×2 (08:59→21:07)
[2018-10-16] MEDS: NYSTATIN 30 GM POWDER BTL TOP ×2 (09:00→21:07)
[2018-10-16] MEDS: LISINOPRIL 20 MG TAB NGT (09:00)
[2018-10-16] MEDS: DEXTROSE 5%-0.45% NACL 1,000 ML IV (11:41)
[2018-10-16] MEDS: FENTAnyl 1,000 MCG in SOD CHLORIDE 0.9% 80 ML IV (12:32)
[2018-10-16] MEDS: SENNA TAB PO (21:07)
[2018-10-17] MEDS: PROPOFOL 100 ML IV ×4 (00:15→07:43)
[2018-10-17] MEDS: INSULIN ASPART [NOVOLOG] 3 ML PEN SC ×6 (01:00→20:37)
[2018-10-17] MEDS: LACTULOSE 30ML CUP PO ×6 (01:16→21:53)
[2018-10-17] MEDS: ACETYLCYSTEINE 20% 4 ML VIAL NEB ×3 (01:46→20:57)
[2018-10-17] MEDS: IPRATROPIUM (HFA) 12.9 GM INHALER INH ×2 (01:46→07:30)
[2018-10-17] MEDS: ALBUTEROL HFA 8 GM INHALER INH ×2 (01:46→07:30)
[2018-10-17] MEDS: ACCU-CHEK XX ×2 (02:00→21:53)
[2018-10-17] MEDS: MIDAZOLAM (DRIP) 50 mg/50 mL 50 ML IV ×2 (02:09→09:21)
[2018-10-17] MEDS: FENTAnyl 1,000 MCG in SOD CHLORIDE 0.9% 80 ML IV (02:11)
[2018-10-17] MEDS: DEXTROSE 5%-0.45% NACL 1,000 ML IV ×2 (02:20→20:52)
[2018-10-17 05:08] LABS: ADD MAN DIFF? NO
[2018-10-17 05:11] LABS: ABNORMAL IP MESSAGE 1; BASOPHIL # 0.1 10^3/ul (0.0-0.1); BASOPHILS % 0.4 % (0.0-2.0); EOSINOPHILS # 0.2 10^3/ul (0.0-0.5); EOSINOPHILS % 1.5 % (0.0-7.0); HEMATOCRIT 45.4 % (42.0-52.0); HEMOGLOBIN 13.7 g/dl (14.0-18.0); LYMPHOCYTES # 3.5 10^3/ul (0.8-2.9); LYMPHOCYTES % 25.5 % (15.0-51.0); MEAN CORPUSCULAR HEMOGLOBIN 26.5 pg (29.0-33.0); MEAN CORPUSCULAR HGB CONC 30.2 g/dl (32.0-37.0); MEAN CORPUSCULAR VOLUME 87.8 fl (82.0-101.0); MEAN PLATELET VOLUME 11.2 fl (7.4-10.4); MONOCYTE # 1.8 10^3/ul (0.3-0.9); MONOCYTES % 13.2 % (0.0-11.0); NEUTROPHIL # 7.9 10^3/ul (1.6-7.5); NEUTROPHILS % 57.9 % (39.0-77.0); PLATELET COUNT 324 10^3/UL (140-415); POSITIVE DIFF @See below; RED BLOOD COUNT 5.17 10^6/ul (4.70-6.10); RED CELL DISTRIBUTION WIDTH 19.4 % (11.5-14.5)
[2018-10-17 05:11] LABS: WHITE BLOOD COUNT 13.6 10^3/ul (4.8-10.8)
[2018-10-17 05:32] LABS: BLOOD UREA NITROGEN 23 mg/dl (7-20); CALCIUM 8.8 mg/dl (8.4-10.2); CHLORIDE 98 mmol/L (97-110); CREATININE 0.55 mg/dl (0.61-1.24); Estimated GFR > 60 mL/min (>60); GLUCOSE 106 mg/dl (70-220); POTASSIUM 3.4 mmol/L (3.5-5.1); SODIUM 140 mmol/L (135-144)
[2018-10-17 05:39] LABS: ANION GAP 3 (5-13)
[2018-10-17 05:43] LABS: CARBON DIOXIDE 39 mmol/L (21-31)
[2018-10-17] MEDS: INSULIN GLARGINE [LANTus] (100 UNITS/ML) SYG SC ×2 (08:55→20:00)
[2018-10-17] MEDS: ENOXAPARIN 60 MG/0.6 ML SYG SC (08:55)
[2018-10-17] MEDS: FAMOTIDINE 20 MG TAB GTB ×2 (08:56→20:36)
[2018-10-17] MEDS: DOCUSATE SODIUM 10 MG/ML (10ML CUP) GTB ×2 (08:56→20:36)
[2018-10-17] MEDS: LISINOPRIL 20 MG TAB NGT (08:56)
[2018-10-17] MEDS: SENNA TAB PO ×2 (08:56→20:37)
[2018-10-17] MEDS: NYSTATIN 30 GM POWDER BTL TOP ×2 (08:56→20:37)
[2018-10-17 14:24] LABS: AADO2 Arterial 191.6 mmHg (7.0-24.0); Allen Test ACCEPTAB; Arterial Base Excess 8.3 mmol/L (-3.0-3); Arterial COHb 1.1 % (0.0-3.0); Arterial Fraction of Oxyhgb 88.8 % (93.0-99.0); Arterial HCO3 35.9 mmol/L (22.0-26.0); Arterial MetHb 0.2 % (0.0-1.5); Arterial pCO2 61.3 mmhg (35-45); Blood Gas PS 10; MODE VENT - AC; Site Left Radial
[2018-10-17 15:03] LABS: ANION GAP 6 (5-13); BLOOD UREA NITROGEN 23 mg/dl (7-20); CALCIUM 8.9 mg/dl (8.4-10.2); CARBON DIOXIDE 35 mmol/L (21-31); CHLORIDE 96 mmol/L (97-110); CREATININE 0.44 mg/dl (0.61-1.24); Estimated GFR > 60 mL/min (>60); GLUCOSE 97 mg/dl (70-220); POTASSIUM 3.4 mmol/L (3.5-5.1); SODIUM 137 mmol/L (135-144)
[2018-10-17] MEDS ORDERED: POTASSIUM CHLORIDE 100 ML (16:09)
[2018-10-17] MEDS: POTASSIUM CHLORIDE 50 ML IVPB ×2 (16:26→18:43)
[2018-10-17] MEDS: METOPROLOL 25 MG TAB PO ×2 (16:30→21:52)
[2018-10-17] MEDS ORDERED: IPRATROPIUM (HFA) 12.9 GM INHALER INH (17:30)
[2018-10-17] MEDS ORDERED: ALBUTEROL HFA 8 GM INHALER INH (17:30)
[2018-10-17] MEDS: METOPROLOL 5 MG INJ IV ×3 (18:44→23:40)
[2018-10-17] MEDS: LORAZEPAM 2 MG INJ IV (20:51)
[2018-10-17] MEDS: ALBUTEROL/IPRATROPIUM (NEB) 3 ML AMP HHN (20:57)
[2018-10-17 21:26] LABS: BLOOD UREA NITROGEN 19 mg/dl (7-20); CALCIUM 8.7 mg/dl (8.4-10.2); CHLORIDE 99 mmol/L (97-110); CREATININE 0.47 mg/dl (0.61-1.24); Estimated GFR > 60 mL/min (>60); GLUCOSE 113 mg/dl (70-220); MAGNESIUM 1.8 mg/dl (1.7-2.5); PHOSPHORUS 3.3 mg/dl (2.5-4.9); POTASSIUM 3.7 mmol/L (3.5-5.1); SODIUM 140 mmol/L (135-144)
[2018-10-17 21:33] LABS: ANION GAP 3 (5-13)
[2018-10-17 21:34] LABS: CARBON DIOXIDE 38 mmol/L (21-31)
[2018-10-17] MEDS: MAGNESIUM SULFATE 2 GM/50 ML 50 ML IVPB (23:39)
[2018-10-17] MEDS: DIPHENHYDRAMINE 50 MG INJ IV (23:40)
[2018-10-17 23:47] LABS: AADO2 Arterial 213.9 mmHg (7.0-24.0); Allen Test ACCEPTAB; Arterial Base Excess 10.7 mmol/L (-3.0-3); Arterial Blood Gas Oxygen Sat 95.6 mmHG (95.0-98.0); Arterial COHb 0.9 % (0.0-3.0); Arterial Fraction of Oxyhgb 94.5 % (93.0-99.0); Arterial HCO3 37.3 mmol/L (22.0-26.0); Arterial MetHb 0.3 % (0.0-1.5); Arterial pCO2 56.7 mmhg (35-45); Blood Gas IEPAP 20/8; MODE MASK - BIPAP; Site Right Radial
[2018-10-17] MEDS: POTASSIUM CHLORIDE 100 ML IVPB (23:47)
[2018-10-18] MEDS: INSULIN ASPART [NOVOLOG] 3 ML PEN SC ×6 (01:00→20:25)
[2018-10-18] MEDS: LORAZEPAM 2 MG INJ IV ×4 (01:09→22:25)
[2018-10-18] MEDS: ALBUTEROL/IPRATROPIUM (NEB) 3 ML AMP HHN ×4 (01:19→19:44)
[2018-10-18] MEDS: ACETYLCYSTEINE 20% 4 ML VIAL NEB ×4 (01:19→19:44)
[2018-10-18] MEDS: POTASSIUM CHLORIDE 100 ML IVPB (01:30)
[2018-10-18] MEDS: METOPROLOL 5 MG INJ IV ×3 (05:02→17:53)
[2018-10-18 05:19] LABS: ADD MAN DIFF? NO
[2018-10-18 05:20] LABS: WHITE BLOOD COUNT 13.1 10^3/ul (4.8-10.8)
[2018-10-18 05:20] LABS: ABNORMAL IP MESSAGE 1; BASOPHIL # 0.1 10^3/ul (0.0-0.1); BASOPHILS % 0.6 % (0.0-2.0); EOSINOPHILS # 0.1 10^3/ul (0.0-0.5); EOSINOPHILS % 1.1 % (0.0-7.0); HEMATOCRIT 45.3 % (42.0-52.0); LYMPHOCYTES # 2.1 10^3/ul (0.8-2.9); LYMPHOCYTES % 16.3 % (15.0-51.0); MEAN CORPUSCULAR HEMOGLOBIN 26.8 pg (29.0-33.0); MEAN CORPUSCULAR HGB CONC 30.9 g/dl (32.0-37.0); MEAN CORPUSCULAR VOLUME 86.6 fl (82.0-101.0); MEAN PLATELET VOLUME 11.7 fl (7.4-10.4); MONOCYTE # 1.8 10^3/ul (0.3-0.9); MONOCYTES % 13.5 % (0.0-11.0); NEUTROPHIL # 8.8 10^3/ul (1.6-7.5); PLATELET COUNT 307 10^3/UL (140-415); POSITIVE DIFF @See below; RED BLOOD COUNT 5.23 10^6/ul (4.70-6.10); RED CELL DISTRIBUTION WIDTH 19.4 % (11.5-14.5)
[2018-10-18 05:49] LABS: ANION GAP 1 (5-13); BLOOD UREA NITROGEN 16 mg/dl (7-20); CALCIUM 8.7 mg/dl (8.4-10.2); CARBON DIOXIDE 38 mmol/L (21-31); CHLORIDE 100 mmol/L (97-110); CREATININE 0.42 mg/dl (0.61-1.24); Estimated GFR > 60 mL/min (>60); GLUCOSE 121 mg/dl (70-220); MAGNESIUM 2.1 mg/dl (1.7-2.5); POTASSIUM 3.9 mmol/L (3.5-5.1); SODIUM 139 mmol/L (135-144)
[2018-10-18] MEDS ORDERED: ACETAMINOPHEN 650 MG SUPP PR (06:30)
[2018-10-18 08:03] LABS: AADO2 Arterial 239.6 mmHg (7.0-24.0); Allen Test ACCEPTAB; Arterial Base Excess 5.6 mmol/L (-3.0-3); Arterial Blood Gas Oxygen Sat 92.6 mmHG (95.0-98.0); Arterial Fraction of Oxyhgb 91.4 % (93.0-99.0); Arterial HCO3 30.7 mmol/L (22.0-26.0); Arterial MetHb 0.3 % (0.0-1.5); Arterial pCO2 46.5 mmhg (35-45); MODE MASK - VENTI; Site Left Radial
[2018-10-18] MEDS: ENOXAPARIN 60 MG/0.6 ML SYG SC (08:35)
[2018-10-18] MEDS: INSULIN GLARGINE [LANTus] (100 UNITS/ML) SYG SC ×2 (08:35→20:24)
[2018-10-18] MEDS: NYSTATIN 30 GM POWDER BTL TOP ×2 (08:43→20:25)
[2018-10-18] MEDS: SENNA TAB PO ×2 (09:00→20:25)
[2018-10-18] MEDS: LISINOPRIL 20 MG TAB NGT (09:00)
[2018-10-18] MEDS: METOPROLOL 25 MG TAB PO ×2 (09:00→14:33)
[2018-10-18] MEDS: DOCUSATE SODIUM 10 MG/ML (10ML CUP) GTB ×2 (09:00→20:24)
[2018-10-18] MEDS: FAMOTIDINE 20 MG TAB GTB ×2 (09:00→20:25)
[2018-10-18] MEDS: HYDROmorphONE 0.5 MG/0.5 ML SYG IV ×3 (09:08→22:27)
[2018-10-18] MEDS: LACTULOSE 30ML CUP PO ×2 (11:57→17:53)
[2018-10-18] MEDS: FUROSEMIDE 40 MG INJ IV ×2 (12:02→17:52)
[2018-10-18] MEDS: DEXTROSE 5%-0.45% NACL 1,000 ML IV ×2 (15:30→19:24)
[2018-10-19] MEDS: INSULIN ASPART [NOVOLOG] 3 ML PEN SC ×6 (00:47→20:31)
[2018-10-19] MEDS: METOPROLOL 5 MG INJ IV ×4 (00:47→18:43)
[2018-10-19] MEDS: ACETYLCYSTEINE 20% 4 ML VIAL NEB ×4 (01:16→20:01)
[2018-10-19] MEDS: ALBUTEROL/IPRATROPIUM (NEB) 3 ML AMP HHN ×4 (01:16→20:01)
[2018-10-19] MEDS: ACCU-CHEK XX (01:19)
[2018-10-19 05:11] LABS: ADD MAN DIFF? NO
[2018-10-19 05:29] LABS: WHITE BLOOD COUNT 11.9 10^3/ul (4.8-10.8)
[2018-10-19 05:29] LABS: ABNORMAL IP MESSAGE 1; BASOPHILS % 0.3 % (0.0-2.0); EOSINOPHILS # 0.2 10^3/ul (0.0-0.5); EOSINOPHILS % 1.8 % (0.0-7.0); HEMATOCRIT 44.6 % (42.0-52.0); HEMOGLOBIN 14.2 g/dl (14.0-18.0); LYMPHOCYTES # 2.3 10^3/ul (0.8-2.9); LYMPHOCYTES % 19.3 % (15.0-51.0); MEAN CORPUSCULAR HGB CONC 31.8 g/dl (32.0-37.0); MEAN PLATELET VOLUME 11.4 fl (7.4-10.4); MONOCYTE # 1.6 10^3/ul (0.3-0.9); MONOCYTES % 13.3 % (0.0-11.0); NEUTROPHIL # 7.7 10^3/ul (1.6-7.5); NEUTROPHILS % 64.2 % (39.0-77.0); PLATELET COUNT 282 10^3/UL (140-415); POSITIVE DIFF @See below; RED BLOOD COUNT 5.25 10^6/ul (4.70-6.10); RED CELL DISTRIBUTION WIDTH 19.3 % (11.5-14.5)
[2018-10-19] MEDS: LACTULOSE 30ML CUP PO ×4 (05:31→18:00)
[2018-10-19] MEDS: FUROSEMIDE 40 MG INJ IV ×2 (05:33→18:43)
[2018-10-19 06:15] LABS: ALANINE AMINOTRANSFERASE 22 IU/L (13-69); ALBUMIN 3.2 g/dl (3.3-4.9); ALBUMIN/GLOBULIN RATIO 1.03; ALKALINE PHOSPHATASE 77 IU/L (42-121); ASPARTATE AMINO TRANSFERASE 21 IU/L (15-46); BILIRUBIN,INDIRECT 1.5 mg/dl (0-1.1); BILIRUBIN,TOTAL 1.5 mg/dl (0.2-1.3); BLOOD UREA NITROGEN 11 mg/dl (7-20); CALCIUM 8.7 mg/dl (8.4-10.2); CHLORIDE 96 mmol/L (97-110); CREATININE 0.43 mg/dl (0.61-1.24); Estimated GFR > 60 mL/min (>60); GLUCOSE 118 mg/dl (70-220); POTASSIUM 3.2 mmol/L (3.5-5.1); SODIUM 138 mmol/L (135-144); TOTAL PROTEIN 6.3 g/dl (6.1-8.1)
[2018-10-19 06:22] LABS: ANION GAP 2 (5-13)
[2018-10-19 06:24] LABS: CARBON DIOXIDE 40 mmol/L (21-31)
[2018-10-19 08:33] LABS: AADO2 Arterial 242.8 mmHg (7.0-24.0); Allen Test ACCEPTAB; Arterial Base Excess 11.7 mmol/L (-3.0-3); Arterial Blood Gas Oxygen Sat 89.6 mmHG (95.0-98.0); Arterial COHb 1.6 % (0.0-3.0); Arterial Fraction of Oxyhgb 87.9 % (93.0-99.0); Arterial HCO3 37.3 mmol/L (22.0-26.0); Arterial MetHb 0.3 % (0.0-1.5); Arterial pCO2 51.5 mmhg (35-45); MODE HFNC; Site Left Radial
[2018-10-19] MEDS: DOCUSATE SODIUM 10 MG/ML (10ML CUP) GTB (08:42)
[2018-10-19] MEDS: LISINOPRIL 20 MG TAB NGT (08:43)
[2018-10-19] MEDS: FAMOTIDINE 20 MG TAB GTB ×2 (08:43→20:31)
[2018-10-19] MEDS: METOPROLOL 25 MG TAB PO ×2 (08:43→20:31)
[2018-10-19] MEDS: SENNA TAB PO ×2 (08:43→20:05)
[2018-10-19] MEDS: INSULIN GLARGINE [LANTus] (100 UNITS/ML) SYG SC ×2 (08:56→20:33)
[2018-10-19] MEDS: ENOXAPARIN 60 MG/0.6 ML SYG SC (08:57)
[2018-10-19] MEDS: NYSTATIN 30 GM POWDER BTL TOP ×2 (09:04→20:31)
[2018-10-19] MEDS ORDERED: POTASSIUM CHLORIDE (SR) 20 MEQ TAB PO (16:00)
[2018-10-19] MEDS: POTASSIUM CHLORIDE 20 MEQ POWDER FOR ORAL SOLN PO (17:03)
[2018-10-20] MEDS: INSULIN ASPART [NOVOLOG] 3 ML PEN SC ×6 (00:39→22:31)
[2018-10-20] MEDS: METOPROLOL 5 MG INJ IV ×4 (00:39→17:56)
[2018-10-20] MEDS: ALBUTEROL/IPRATROPIUM (NEB) 3 ML AMP HHN ×4 (01:16→19:48)
[2018-10-20] MEDS: ACETYLCYSTEINE 20% 4 ML VIAL NEB ×4 (01:16→19:49)
[2018-10-20] MEDS: ACCU-CHEK XX (01:36)
[2018-10-20] MEDS: LACTULOSE 30ML CUP PO ×4 (05:10→17:50)
[2018-10-20 05:20] LABS: ADD MAN DIFF? NO
[2018-10-20 05:24] LABS: WHITE BLOOD COUNT 10.8 10^3/ul (4.8-10.8)
[2018-10-20 05:25] LABS: ABNORMAL IP MESSAGE 1; BASOPHIL # 0.1 10^3/ul (0.0-0.1); BASOPHILS % 0.6 % (0.0-2.0); EOSINOPHILS # 0.3 10^3/ul (0.0-0.5); EOSINOPHILS % 2.7 % (0.0-7.0); HEMATOCRIT 44.2 % (42.0-52.0); HEMOGLOBIN 14.2 g/dl (14.0-18.0); LYMPHOCYTES # 2.4 10^3/ul (0.8-2.9); LYMPHOCYTES % 22.4 % (15.0-51.0); MEAN CORPUSCULAR HEMOGLOBIN 26.9 pg (29.0-33.0); MEAN CORPUSCULAR HGB CONC 32.1 g/dl (32.0-37.0); MEAN CORPUSCULAR VOLUME 83.9 fl (82.0-101.0); MEAN PLATELET VOLUME 10.7 fl (7.4-10.4); MONOCYTE # 1.6 10^3/ul (0.3-0.9); MONOCYTES % 14.7 % (0.0-11.0); NEUTROPHIL # 6.4 10^3/ul (1.6-7.5); NEUTROPHILS % 58.8 % (39.0-77.0); PLATELET COUNT 247 10^3/UL (140-415); POSITIVE DIFF @See below; RED BLOOD COUNT 5.27 10^6/ul (4.70-6.10); RED CELL DISTRIBUTION WIDTH 19.1 % (11.5-14.5)
[2018-10-20 06:01] LABS: BLOOD UREA NITROGEN 12 mg/dl (7-20); CALCIUM 8.7 mg/dl (8.4-10.2); CHLORIDE 93 mmol/L (97-110); CREATININE 0.38 mg/dl (0.61-1.24); Estimated GFR > 60 mL/min (>60); GLUCOSE 81 mg/dl (70-220); MAGNESIUM 1.5 mg/dl (1.7-2.5); PHOSPHORUS 4.6 mg/dl (2.5-4.9); SODIUM 139 mmol/L (135-144)
[2018-10-20] MEDS: FUROSEMIDE 40 MG INJ IV ×2 (06:05→18:02)
[2018-10-20 06:14] LABS: ANION GAP 12 (5-13)
[2018-10-20] MEDS: POTASSIUM CHLORIDE 100 ML IVPB ×3 (06:20→13:39)
[2018-10-20] MEDS: MAGNESIUM SULFATE 3 GM in DEXTROSE 5% 100 ML IVPB (06:48)
[2018-10-20 07:40] LABS: AADO2 Arterial 273.3 mmHg (7.0-24.0); Allen Test ACCEPTAB; Arterial Base Excess 12.8 mmol/L (-3.0-3); Arterial Blood Gas Oxygen Sat 91.3 mmHG (95.0-98.0); Arterial COHb 1.8 % (0.0-3.0); Arterial Fraction of Oxyhgb 89.4 % (93.0-99.0); Arterial MetHb 0.3 % (0.0-1.5); Arterial pCO2 54.3 mmhg (35-45); MODE HFNC; Site Left Radial
[2018-10-20] MEDS: SENNA TAB PO ×2 (09:00→22:26)
[2018-10-20] MEDS: POTASSIUM CHLORIDE 20 MEQ POWDER FOR ORAL SOLN PO ×2 (09:15→22:27)
[2018-10-20] MEDS: LISINOPRIL 20 MG TAB NGT (09:15)
[2018-10-20] MEDS: FAMOTIDINE 20 MG TAB GTB ×2 (09:15→22:27)
[2018-10-20] MEDS: METOPROLOL 25 MG TAB PO ×2 (09:16→22:29)
[2018-10-20] MEDS: NYSTATIN 30 GM POWDER BTL TOP ×2 (09:16→22:29)
[2018-10-20] MEDS: INSULIN GLARGINE [LANTus] (100 UNITS/ML) SYG SC ×2 (09:46→22:35)
[2018-10-20] MEDS: ENOXAPARIN 60 MG/0.6 ML SYG SC (09:46)
[2018-10-20] MEDS: NYSTATIN SUSP 5 ML CUP PO (21:00)
[2018-10-21] MEDS: ACETYLCYSTEINE 20% 4 ML VIAL NEB ×4 (01:00→19:38)
[2018-10-21] MEDS: INSULIN ASPART [NOVOLOG] 3 ML PEN SC ×6 (01:00→21:00)
[2018-10-21] MEDS: ALBUTEROL/IPRATROPIUM (NEB) 3 ML AMP HHN ×4 (01:00→19:38)
[2018-10-21] MEDS: ACCU-CHEK XX (02:00)
[2018-10-21] MEDS: LACTULOSE 30ML CUP PO ×4 (06:22→17:30)
[2018-10-21] MEDS: METOPROLOL 5 MG INJ IV ×4 (06:23→17:32)
[2018-10-21] MEDS: FUROSEMIDE 40 MG INJ IV ×2 (06:23→17:31)
[2018-10-21] MEDS: METOPROLOL 25 MG TAB PO ×2 (09:05→21:02)
[2018-10-21] MEDS: LISINOPRIL 20 MG TAB NGT (09:06)
[2018-10-21] MEDS: FAMOTIDINE 20 MG TAB GTB ×2 (09:06→21:02)
[2018-10-21] MEDS: SENNA TAB PO ×2 (09:06→21:03)
[2018-10-21] MEDS: POTASSIUM CHLORIDE 20 MEQ POWDER FOR ORAL SOLN PO ×2 (09:07→21:03)
[2018-10-21] MEDS: ENOXAPARIN 60 MG/0.6 ML SYG SC (09:18)
[2018-10-21] MEDS: INSULIN GLARGINE [LANTus] (100 UNITS/ML) SYG SC ×2 (09:19→20:00)
[2018-10-21] MEDS: NYSTATIN 30 GM POWDER BTL TOP ×2 (09:20→21:05)
[2018-10-21 09:26] LABS: ADD MAN DIFF? NO
[2018-10-21 09:36] LABS: BASOPHIL # 0.1 10^3/ul (0.0-0.1); BASOPHILS % 0.6 % (0.0-2.0); EOSINOPHILS # 0.4 10^3/ul (0.0-0.5); EOSINOPHILS % 3.7 % (0.0-7.0); HEMATOCRIT 47.7 % (42.0-52.0); HEMOGLOBIN 15.2 g/dl (14.0-18.0); LYMPHOCYTES # 2.6 10^3/ul (0.8-2.9); LYMPHOCYTES % 27.7 % (15.0-51.0); MEAN CORPUSCULAR HEMOGLOBIN 26.7 pg (29.0-33.0); MEAN CORPUSCULAR HGB CONC 31.9 g/dl (32.0-37.0); MEAN CORPUSCULAR VOLUME 83.8 fl (82.0-101.0); MONOCYTE # 1.3 10^3/ul (0.3-0.9); MONOCYTES % 14.1 % (0.0-11.0); NEUTROPHILS % 53.3 % (39.0-77.0); PLATELET COUNT 221 10^3/UL (140-415); RED BLOOD COUNT 5.69 10^6/ul (4.70-6.10); RED CELL DISTRIBUTION WIDTH 19.9 % (11.5-14.5)
[2018-10-21 09:36] LABS: WHITE BLOOD COUNT 9.4 10^3/ul (4.8-10.8)
[2018-10-21 09:51] LABS: ALANINE AMINOTRANSFERASE 18 IU/L (13-69); ALBUMIN 3.6 g/dl (3.3-4.9); ALBUMIN/GLOBULIN RATIO 1.12; ALKALINE PHOSPHATASE 91 IU/L (42-121); ASPARTATE AMINO TRANSFERASE 21 IU/L (15-46); BILIRUBIN,INDIRECT 1.6 mg/dl (0-1.1); BILIRUBIN,TOTAL 1.6 mg/dl (0.2-1.3); BLOOD UREA NITROGEN 12 mg/dl (7-20); CALCIUM 9.2 mg/dl (8.4-10.2); CHLORIDE 91 mmol/L (97-110); CREATININE 0.45 mg/dl (0.61-1.24); Estimated GFR > 60 mL/min (>60); GLUCOSE 123 mg/dl (70-220); POTASSIUM 3.1 mmol/L (3.5-5.1); SODIUM 138 mmol/L (135-144); TOTAL PROTEIN 6.8 g/dl (6.1-8.1)
[2018-10-21 09:58] LABS: ANION GAP 9 (5-13); CARBON DIOXIDE 38 mmol/L (21-31)
[2018-10-21] MEDS: POTASSIUM CHLORIDE (SR) 20 MEQ TAB PO (10:33)
[2018-10-21] MEDS: SPIRONOLACTONE 50 MG TAB PO (14:47)
[2018-10-21] MEDS: NYSTATIN SUSP 5 ML CUP PO (21:04)
[2018-10-22] MEDS: INSULIN ASPART [NOVOLOG] 3 ML PEN SC ×5 (01:00→17:25)
[2018-10-22] MEDS: ALBUTEROL/IPRATROPIUM (NEB) 3 ML AMP HHN ×4 (01:19→19:15)
[2018-10-22] MEDS: ACETYLCYSTEINE 20% 4 ML VIAL NEB ×2 (01:19→09:46)
[2018-10-22] MEDS: ACCU-CHEK XX (02:00)
[2018-10-22] MEDS: METOPROLOL 5 MG INJ IV ×2 (05:59)
[2018-10-22] MEDS: FUROSEMIDE 40 MG INJ IV ×2 (06:00→17:29)
[2018-10-22] MEDS: LACTULOSE 30ML CUP PO ×2 (06:00)
[2018-10-22] MEDS: INSULIN GLARGINE [LANTus] (100 UNITS/ML) SYG SC ×2 (08:33→20:29)
[2018-10-22 08:47] LABS: ANION GAP 6 (5-13); BLOOD UREA NITROGEN 12 mg/dl (7-20); CALCIUM 9.3 mg/dl (8.4-10.2); CARBON DIOXIDE 39 mmol/L (21-31); CHLORIDE 95 mmol/L (97-110); CREATININE 0.46 mg/dl (0.61-1.24); Estimated GFR > 60 mL/min (>60); GLUCOSE 111 mg/dl (70-220); MAGNESIUM 1.6 mg/dl (1.7-2.5); POTASSIUM 3.7 mmol/L (3.5-5.1); SODIUM 140 mmol/L (135-144)
[2018-10-22] MEDS: POTASSIUM CHLORIDE 20 MEQ POWDER FOR ORAL SOLN PO ×2 (08:48→20:21)
[2018-10-22] MEDS: FAMOTIDINE 20 MG TAB GTB (08:48)
[2018-10-22] MEDS: METOPROLOL 25 MG TAB PO (08:48)
[2018-10-22] MEDS: LISINOPRIL 20 MG TAB NGT (08:49)
[2018-10-22] MEDS: SENNA TAB PO ×2 (08:49→20:21)
[2018-10-22] MEDS: SPIRONOLACTONE 50 MG TAB PO (08:49)
[2018-10-22] MEDS: NYSTATIN 30 GM POWDER BTL TOP ×2 (08:52→21:24)
[2018-10-22] MEDS: ENOXAPARIN 60 MG/0.6 ML SYG SC (08:55)
[2018-10-22] MEDS: MAGNESIUM OXIDE 400 MG TAB PO ×2 (12:20→20:21)
[2018-10-22 13:51] LABS: Arterial Base Excess 9.6 mmol/L (-3.0-3); Arterial Blood Gas Oxygen Sat 84.7 mmHG (95.0-98.0); Arterial COHb 1.4 % (0.0-3.0); Arterial Fraction of Oxyhgb 83.3 % (93.0-99.0); Arterial HCO3 34.1 mmol/L (22.0-26.0); Arterial MetHb 0.2 % (0.0-1.5); MODE ROOM AIR; Site LB
[2018-10-22] MEDS ORDERED: INSULIN ASPART [NOVOLOG] 3 ML PEN SC (17:25)
[2018-10-22] MEDS: MINERAL OIL 240 ML LOT TOP (20:21)
[2018-10-23] MEDS: ALBUTEROL/IPRATROPIUM (NEB) 3 ML AMP HHN ×4 (01:24→19:30)
[2018-10-23] MEDS: FUROSEMIDE 40 MG INJ IV ×2 (06:35→17:22)
[2018-10-23 07:12] LABS: MAGNESIUM 1.6 mg/dl (1.7-2.5)
[2018-10-23 07:14] LABS: ANION GAP 3 (5-13); BLOOD UREA NITROGEN 17 mg/dl (7-20); CARBON DIOXIDE 37 mmol/L (21-31); CHLORIDE 97 mmol/L (97-110); Estimated GFR > 60 mL/min (>60); GLUCOSE 112 mg/dl (70-220); POTASSIUM 4.1 mmol/L (3.5-5.1); SODIUM 137 mmol/L (135-144)
[2018-10-23] MEDS: INSULIN ASPART [NOVOLOG] 3 ML PEN SC ×3 (07:50→17:23)
[2018-10-23] MEDS: MAGNESIUM OXIDE 400 MG TAB PO ×2 (08:56→20:57)
[2018-10-23] MEDS: LISINOPRIL 20 MG TAB NGT (08:57)
[2018-10-23] MEDS: SENNA TAB PO ×2 (08:57→20:57)
[2018-10-23] MEDS: METOPROLOL (XL) 50 MG TAB PO (08:57)
[2018-10-23] MEDS: SPIRONOLACTONE 50 MG TAB PO (08:57)
[2018-10-23] MEDS: POTASSIUM CHLORIDE 20 MEQ POWDER FOR ORAL SOLN PO ×2 (08:58→20:58)
[2018-10-23] MEDS: MINERAL OIL 240 ML LOT TOP (08:58)
[2018-10-23] MEDS: NYSTATIN 30 GM POWDER BTL TOP ×2 (08:58→22:33)
[2018-10-23] MEDS: ENOXAPARIN 60 MG/0.6 ML SYG SC (09:13)
[2018-10-23] MEDS: INSULIN GLARGINE [LANTus] (100 UNITS/ML) SYG SC ×2 (09:14→21:02)
[2018-10-24] MEDS: ALBUTEROL/IPRATROPIUM (NEB) 3 ML AMP HHN ×4 (02:29→21:23)
[2018-10-24] MEDS: FUROSEMIDE 40 MG INJ IV ×2 (05:37→17:52)
[2018-10-24 06:06] LABS: ANION GAP 7 (5-13); BLOOD UREA NITROGEN 15 mg/dl (7-20); CALCIUM 9.2 mg/dl (8.4-10.2); CARBON DIOXIDE 36 mmol/L (21-31); CHLORIDE 94 mmol/L (97-110); CREATININE 0.51 mg/dl (0.61-1.24); Estimated GFR > 60 mL/min (>60); GLUCOSE 116 mg/dl (70-220); MAGNESIUM 1.8 mg/dl (1.7-2.5); POTASSIUM 3.9 mmol/L (3.5-5.1); SODIUM 137 mmol/L (135-144)
[2018-10-24] MEDS: ACETYLCYSTEINE 20% 4 ML VIAL NEB (08:16)
[2018-10-24] MEDS: SENNA TAB PO ×2 (08:50→20:59)
[2018-10-24] MEDS: INSULIN ASPART [NOVOLOG] 3 ML PEN SC ×3 (08:50→17:25)
[2018-10-24] MEDS: LISINOPRIL 20 MG TAB NGT (08:53)
[2018-10-24] MEDS: METOPROLOL (XL) 50 MG TAB PO (08:54)
[2018-10-24] MEDS: POTASSIUM CHLORIDE 20 MEQ POWDER FOR ORAL SOLN PO ×2 (08:56→20:59)
[2018-10-24] MEDS: MAGNESIUM OXIDE 400 MG TAB PO ×2 (08:56→20:59)
[2018-10-24] MEDS: ENOXAPARIN 60 MG/0.6 ML SYG SC (09:01)
[2018-10-24] MEDS: INSULIN GLARGINE [LANTus] (100 UNITS/ML) SYG SC ×2 (09:04→21:04)
[2018-10-24] MEDS: MINERAL OIL 240 ML LOT TOP (09:05)
[2018-10-24] MEDS: NYSTATIN 30 GM POWDER BTL TOP ×2 (09:05→21:18)
[2018-10-24] MEDS: SPIRONOLACTONE 50 MG TAB PO (14:08)
[2018-10-25] MEDS: ALBUTEROL/IPRATROPIUM (NEB) 3 ML AMP HHN ×4 (02:33→19:57)
[2018-10-25] MEDS: FUROSEMIDE 40 MG INJ IV ×2 (05:38→17:39)
[2018-10-25] MEDS: SENNA TAB PO ×2 (08:59→20:33)
[2018-10-25] MEDS: LISINOPRIL 20 MG TAB NGT (09:00)
[2018-10-25] MEDS: INSULIN ASPART [NOVOLOG] 3 ML PEN SC ×3 (09:00→17:25)
[2018-10-25] MEDS: METOPROLOL (XL) 50 MG TAB PO (09:01)
[2018-10-25] MEDS: SPIRONOLACTONE 50 MG TAB PO (09:02)
[2018-10-25] MEDS: POTASSIUM CHLORIDE 20 MEQ POWDER FOR ORAL SOLN PO ×2 (09:03→20:33)
[2018-10-25] MEDS: ENOXAPARIN 60 MG/0.6 ML SYG SC (09:04)
[2018-10-25] MEDS: MINERAL OIL 240 ML LOT TOP (09:05)
[2018-10-25] MEDS: NYSTATIN 30 GM POWDER BTL TOP ×2 (09:05→20:34)
[2018-10-25] MEDS: INSULIN GLARGINE [LANTus] (100 UNITS/ML) SYG SC ×2 (09:10→20:38)
[2018-10-26] MEDS: ALBUTEROL/IPRATROPIUM (NEB) 3 ML AMP HHN ×4 (02:31→19:58)
[2018-10-26] MEDS: FUROSEMIDE 40 MG INJ IV ×2 (05:43→17:17)
[2018-10-26] MEDS: INSULIN ASPART [NOVOLOG] 3 ML PEN SC ×3 (08:50→17:25)
[2018-10-26] MEDS: SENNA TAB PO ×2 (08:55→20:35)
[2018-10-26] MEDS: SPIRONOLACTONE 50 MG TAB PO (08:56)
[2018-10-26] MEDS: POTASSIUM CHLORIDE 20 MEQ POWDER FOR ORAL SOLN PO ×2 (08:57→20:35)
[2018-10-26] MEDS: LISINOPRIL 20 MG TAB NGT (08:57)
[2018-10-26] MEDS: METOPROLOL (XL) 50 MG TAB PO (08:57)
[2018-10-26] MEDS: INSULIN GLARGINE [LANTus] (100 UNITS/ML) SYG SC ×2 (08:58→20:37)
[2018-10-26] MEDS: MINERAL OIL 240 ML LOT TOP (08:59)
[2018-10-26] MEDS: ENOXAPARIN 60 MG/0.6 ML SYG SC (08:59)
[2018-10-26] MEDS: NYSTATIN 30 GM POWDER BTL TOP ×2 (08:59→20:35)
[2018-10-27] MEDS: ALBUTEROL/IPRATROPIUM (NEB) 3 ML AMP HHN ×4 (02:12→19:51)
[2018-10-27] MEDS: FUROSEMIDE 40 MG INJ IV ×2 (05:43→17:43)
[2018-10-27] MEDS: LISINOPRIL 20 MG TAB NGT (08:18)
[2018-10-27] MEDS: SPIRONOLACTONE 50 MG TAB PO (08:18)
[2018-10-27] MEDS: SENNA TAB PO ×2 (08:18→21:45)
[2018-10-27] MEDS: POTASSIUM CHLORIDE 20 MEQ POWDER FOR ORAL SOLN PO ×2 (08:18→21:45)
[2018-10-27] MEDS: METOPROLOL (XL) 50 MG TAB PO (08:19)
[2018-10-27] MEDS: ENOXAPARIN 60 MG/0.6 ML SYG SC (08:20)
[2018-10-27] MEDS: INSULIN GLARGINE [LANTus] (100 UNITS/ML) SYG SC ×2 (08:21→21:47)
[2018-10-27] MEDS: INSULIN ASPART [NOVOLOG] 3 ML PEN SC ×3 (08:22→17:35)
[2018-10-27] MEDS: MINERAL OIL 240 ML LOT TOP (08:26)
[2018-10-27] MEDS: NYSTATIN 30 GM POWDER BTL TOP ×2 (08:26→21:45)
[2018-10-28] MEDS: ALBUTEROL/IPRATROPIUM (NEB) 3 ML AMP HHN ×4 (01:34→20:28)
[2018-10-28] MEDS: FUROSEMIDE 40 MG INJ IV ×2 (05:53→18:00)
[2018-10-28 05:57] LABS: ANION GAP 10 (5-13); BLOOD UREA NITROGEN 20 mg/dl (7-20); CALCIUM 9.8 mg/dl (8.4-10.2); CARBON DIOXIDE 32 mmol/L (21-31); CHLORIDE 94 mmol/L (97-110); Estimated GFR > 60 mL/min (>60); GLUCOSE 148 mg/dl (70-220); SODIUM 136 mmol/L (135-144)
[2018-10-28] MEDS: SPIRONOLACTONE 50 MG TAB PO (09:00)
[2018-10-28] MEDS: LISINOPRIL 20 MG TAB NGT (09:00)
[2018-10-28] MEDS: METOPROLOL (XL) 50 MG TAB PO (09:00)
[2018-10-28] MEDS: SENNA TAB PO ×2 (09:00→20:52)
[2018-10-28] MEDS: INSULIN ASPART [NOVOLOG] 3 ML PEN SC ×3 (09:32→17:53)
[2018-10-28] MEDS: INSULIN GLARGINE [LANTus] (100 UNITS/ML) SYG SC ×2 (09:34→20:54)
[2018-10-28] MEDS: ENOXAPARIN 60 MG/0.6 ML SYG SC (10:27)
[2018-10-28] MEDS: NYSTATIN 30 GM POWDER BTL TOP ×2 (10:30→20:54)
[2018-10-28] MEDS: MINERAL OIL 240 ML LOT TOP (10:32)
[2018-10-29] MEDS: ALBUTEROL/IPRATROPIUM (NEB) 3 ML AMP HHN ×4 (02:07→21:06)
[2018-10-29] MEDS: FUROSEMIDE 40 MG INJ IV ×2 (06:05→18:00)
[2018-10-29] MEDS: LISINOPRIL 20 MG TAB NGT (09:00)
[2018-10-29] MEDS: INSULIN ASPART [NOVOLOG] 3 ML PEN SC ×3 (09:04→17:25)
[2018-10-29] MEDS: SENNA TAB PO ×2 (09:05→21:39)
[2018-10-29] MEDS: METOPROLOL (XL) 50 MG TAB PO (09:05)
[2018-10-29] MEDS: SPIRONOLACTONE 50 MG TAB PO (09:05)
[2018-10-29] MEDS: NYSTATIN 30 GM POWDER BTL TOP ×2 (09:08→21:48)
[2018-10-29] MEDS: MINERAL OIL 240 ML LOT TOP (09:08)
[2018-10-29] MEDS: ENOXAPARIN 60 MG/0.6 ML SYG SC (09:09)
[2018-10-29] MEDS: INSULIN GLARGINE [LANTus] (100 UNITS/ML) SYG SC ×2 (09:19→21:42)
[2018-10-29] MEDS: [UNRECOGNIZED DRUG - OTHER] XX (21:00)
[2018-10-29] MEDS: ACETYLCYSTEINE 20% 4 ML VIAL NEB (21:06)
[2018-10-30] MEDS: ALBUTEROL/IPRATROPIUM (NEB) 3 ML AMP HHN ×5 (01:47→20:11)
[2018-10-30] MEDS: [UNRECOGNIZED DRUG - OTHER] XX ×3 (05:00→21:00)
[2018-10-30] MEDS: FUROSEMIDE 40 MG INJ IV ×2 (06:00→17:54)
[2018-10-30] MEDS: INSULIN GLARGINE [LANTus] (100 UNITS/ML) SYG SC ×2 (08:43→22:32)
[2018-10-30] MEDS: INSULIN ASPART [NOVOLOG] 3 ML PEN SC ×3 (08:43→17:50)
[2018-10-30] MEDS: ENOXAPARIN 60 MG/0.6 ML SYG SC (08:44)
[2018-10-30] MEDS: SENNA TAB PO ×2 (08:48→22:30)
[2018-10-30] MEDS: SPIRONOLACTONE 50 MG TAB PO (08:48)
[2018-10-30] MEDS: METOPROLOL (XL) 50 MG TAB PO (08:49)
[2018-10-30] MEDS: LISINOPRIL 20 MG TAB NGT (08:49)
[2018-10-30] MEDS: MINERAL OIL 240 ML LOT TOP (09:24)
[2018-10-30] MEDS: NYSTATIN 30 GM POWDER BTL TOP ×2 (09:24→22:30)
[2018-10-31] MEDS: ALBUTEROL/IPRATROPIUM (NEB) 3 ML AMP HHN ×4 (01:59→20:50)
[2018-10-31] MEDS: [UNRECOGNIZED DRUG - OTHER] XX ×3 (05:00→21:00)
[2018-10-31] MEDS: FUROSEMIDE 40 MG INJ IV ×2 (05:25→19:15)
[2018-10-31] MEDS: METOPROLOL (XL) 50 MG TAB PO (09:00)
[2018-10-31] MEDS: LISINOPRIL 20 MG TAB NGT (09:00)
[2018-10-31] MEDS: SPIRONOLACTONE 50 MG TAB PO (09:00)
[2018-10-31] MEDS: SENNA TAB PO ×2 (09:49→21:55)
[2018-10-31] MEDS: INSULIN GLARGINE [LANTus] (100 UNITS/ML) SYG SC ×2 (09:54→21:55)
[2018-10-31] MEDS: INSULIN ASPART [NOVOLOG] 3 ML PEN SC ×3 (09:55→17:25)
[2018-10-31] MEDS: ENOXAPARIN 60 MG/0.6 ML SYG SC (10:00)
[2018-10-31] MEDS: MINERAL OIL 240 ML LOT TOP (10:04)
[2018-10-31] MEDS: NYSTATIN 30 GM POWDER BTL TOP ×2 (10:04→21:57)
[2018-11-01] MEDS: ALBUTEROL/IPRATROPIUM (NEB) 3 ML AMP HHN ×4 (02:32→20:01)
[2018-11-01] MEDS: [UNRECOGNIZED DRUG - OTHER] XX ×3 (05:00→21:00)
[2018-11-01] MEDS: FUROSEMIDE 40 MG INJ IV (05:34)
[2018-11-01] MEDS: INSULIN GLARGINE [LANTus] (100 UNITS/ML) SYG SC ×2 (08:53→20:15)
[2018-11-01] MEDS: ENOXAPARIN 60 MG/0.6 ML SYG SC (08:53)
[2018-11-01] MEDS: INSULIN ASPART [NOVOLOG] 3 ML PEN SC ×3 (08:54→17:25)
[2018-11-01] MEDS: SENNA TAB PO ×2 (08:54→20:14)
[2018-11-01] MEDS: LISINOPRIL 20 MG TAB NGT (08:55)
[2018-11-01] MEDS: METOPROLOL (XL) 50 MG TAB PO (08:55)
[2018-11-01] MEDS: MINERAL OIL 240 ML LOT TOP (09:00)
[2018-11-01] MEDS: NYSTATIN 30 GM POWDER BTL TOP ×2 (12:42→20:21)
[2018-11-01] MEDS: SPIRONOLACTONE 50 MG TAB PO (12:52)
[2018-11-02] MEDS: ALBUTEROL/IPRATROPIUM (NEB) 3 ML AMP HHN ×4 (02:00→21:07)
[2018-11-02] MEDS: [UNRECOGNIZED DRUG - OTHER] XX ×3 (05:00→21:00)
[2018-11-02 05:14] LABS: ADD MAN DIFF? NO
[2018-11-02 05:16] LABS: WHITE BLOOD COUNT 9.8 10^3/ul (4.8-10.8)
[2018-11-02 05:16] LABS: ABNORMAL IP MESSAGE 1; BASOPHIL # 0.1 10^3/ul (0.0-0.1); BASOPHILS % 0.6 % (0.0-2.0); EOSINOPHILS # 0.4 10^3/ul (0.0-0.5); EOSINOPHILS % 4.3 % (0.0-7.0); HEMATOCRIT 48.1 % (42.0-52.0); HEMOGLOBIN 15.1 g/dl (14.0-18.0); LYMPHOCYTES % 51.2 % (15.0-51.0); MEAN CORPUSCULAR HEMOGLOBIN 26.4 pg (29.0-33.0); MEAN CORPUSCULAR HGB CONC 31.4 g/dl (32.0-37.0); MEAN CORPUSCULAR VOLUME 83.9 fl (82.0-101.0); MEAN PLATELET VOLUME 9.6 fl (7.4-10.4); MONOCYTE # 1.3 10^3/ul (0.3-0.9); MONOCYTES % 13.5 % (0.0-11.0); NEUTROPHIL # 2.9 10^3/ul (1.6-7.5); NEUTROPHILS % 29.6 % (39.0-77.0); PLATELET COUNT 347 10^3/UL (140-415); POSITIVE DIFF @See below; RED BLOOD COUNT 5.73 10^6/ul (4.70-6.10); RED CELL DISTRIBUTION WIDTH 20.8 % (11.5-14.5)
[2018-11-02 05:34] LABS: PHOSPHORUS 7.3 mg/dl (2.5-4.9)
[2018-11-02 05:34] LABS: MAGNESIUM 1.7 mg/dl (1.7-2.5)
[2018-11-02 05:37] LABS: ANION GAP 15 (5-13); BLOOD UREA NITROGEN 30 mg/dl (7-20); CALCIUM 9.6 mg/dl (8.4-10.2); CARBON DIOXIDE 32 mmol/L (21-31); CHLORIDE 88 mmol/L (97-110); CREATININE 1.46 mg/dl (0.61-1.24); Estimated GFR 51 mL/min (>60); GLUCOSE 125 mg/dl (70-220); POTASSIUM 4.4 mmol/L (3.5-5.1); SODIUM 135 mmol/L (135-144)
[2018-11-02] MEDS: INSULIN ASPART [NOVOLOG] 3 ML PEN SC ×3 (07:20→17:25)
[2018-11-02] MEDS: INSULIN GLARGINE [LANTus] (100 UNITS/ML) SYG SC ×2 (08:32→20:33)
[2018-11-02] MEDS: ENOXAPARIN 60 MG/0.6 ML SYG SC (08:32)
[2018-11-02] MEDS: SENNA TAB PO ×2 (08:32→20:34)
[2018-11-02] MEDS: FUROSEMIDE 40 MG TAB PO (09:00)
[2018-11-02] MEDS: NYSTATIN 30 GM POWDER BTL TOP ×2 (09:00→20:34)
[2018-11-02] MEDS: MINERAL OIL 240 ML LOT TOP (09:00)
[2018-11-02] MEDS: LISINOPRIL 20 MG TAB NGT (09:00)
[2018-11-02] MEDS: METOPROLOL (XL) 50 MG TAB PO (09:00)
[2018-11-03] MEDS: ALBUTEROL/IPRATROPIUM (NEB) 3 ML AMP HHN ×4 (01:48→19:28)
[2018-11-03] MEDS: [UNRECOGNIZED DRUG - OTHER] XX ×2 (04:10→13:05)
[2018-11-03 05:11] LABS: ADD MAN DIFF? NO
[2018-11-03 05:16] LABS: BASOPHIL # 0.1 10^3/ul (0.0-0.1); BASOPHILS % 0.6 % (0.0-2.0); EOSINOPHILS # 0.3 10^3/ul (0.0-0.5); EOSINOPHILS % 3.7 % (0.0-7.0); HEMATOCRIT 49.2 % (42.0-52.0); HEMOGLOBIN 15.3 g/dl (14.0-18.0); LYMPHOCYTES # 4.7 10^3/ul (0.8-2.9); LYMPHOCYTES % 54.6 % (15.0-51.0); MEAN CORPUSCULAR HEMOGLOBIN 26.1 pg (29.0-33.0); MEAN CORPUSCULAR HGB CONC 31.1 g/dl (32.0-37.0); MEAN PLATELET VOLUME 9.5 fl (7.4-10.4); MONOCYTE # 1.1 10^3/ul (0.3-0.9); MONOCYTES % 12.5 % (0.0-11.0); NEUTROPHIL # 2.4 10^3/ul (1.6-7.5); NEUTROPHILS % 27.9 % (39.0-77.0); PLATELET COUNT 359 10^3/UL (140-415); RED BLOOD COUNT 5.86 10^6/ul (4.70-6.10); RED CELL DISTRIBUTION WIDTH 20.9 % (11.5-14.5)
[2018-11-03 05:16] LABS: WHITE BLOOD COUNT 8.6 10^3/ul (4.8-10.8)
[2018-11-03 05:30] LABS: ALBUMIN 3.8 g/dl (3.3-4.9); ANION GAP 8 (5-13); BLOOD UREA NITROGEN 31 mg/dl (7-20); CARBON DIOXIDE 35 mmol/L (21-31); CHLORIDE 94 mmol/L (97-110); CREATININE 0.94 mg/dl (0.61-1.24); GLUCOSE 147 mg/dl (70-220); MAGNESIUM 1.9 mg/dl (1.7-2.5); PHOSPHORUS 5.1 mg/dl (2.5-4.9); POTASSIUM 5.4 mmol/L (3.5-5.1); SODIUM 137 mmol/L (135-144)
[2018-11-03] MEDS: INSULIN ASPART [NOVOLOG] 3 ML PEN SC ×3 (07:20→17:25)
[2018-11-03] MEDS: SENNA TAB PO ×2 (08:27→20:21)
[2018-11-03] MEDS: FUROSEMIDE 40 MG TAB PO (08:28)
[2018-11-03] MEDS: LISINOPRIL 20 MG TAB PO (08:29)
[2018-11-03] MEDS: METOPROLOL (XL) 50 MG TAB PO (08:29)
[2018-11-03] MEDS: ENOXAPARIN 60 MG/0.6 ML SYG SC (08:30)
[2018-11-03] MEDS: INSULIN GLARGINE [LANTus] (100 UNITS/ML) SYG SC ×2 (08:30→20:24)
[2018-11-03] MEDS ORDERED: ACETAMINOPHEN 325 MG TAB PO (09:30)
[2018-11-03] MEDS: NYSTATIN 30 GM POWDER BTL TOP ×2 (10:29→20:25)
[2018-11-03] MEDS: MINERAL OIL 240 ML LOT TOP (10:29)
[2018-11-03 12:30] LABS: POTASSIUM 4.7 mmol/L (3.5-5.1)
[2018-11-04] MEDS: ALBUTEROL/IPRATROPIUM (NEB) 3 ML AMP HHN ×4 (02:05→20:26)
[2018-11-04 06:12] LABS: ADD MAN DIFF? NO
[2018-11-04 06:24] LABS: BASOPHIL # 0.1 10^3/ul (0.0-0.1); BASOPHILS % 0.7 % (0.0-2.0); EOSINOPHILS # 0.3 10^3/ul (0.0-0.5); EOSINOPHILS % 3.4 % (0.0-7.0); HEMATOCRIT 48.2 % (42.0-52.0); HEMOGLOBIN 15.1 g/dl (14.0-18.0); LYMPHOCYTES # 4.7 10^3/ul (0.8-2.9); LYMPHOCYTES % 55.1 % (15.0-51.0); MEAN CORPUSCULAR HEMOGLOBIN 26.2 pg (29.0-33.0); MEAN CORPUSCULAR HGB CONC 31.3 g/dl (32.0-37.0); MEAN CORPUSCULAR VOLUME 83.7 fl (82.0-101.0); MEAN PLATELET VOLUME 9.5 fl (7.4-10.4); MONOCYTE # 1.1 10^3/ul (0.3-0.9); MONOCYTES % 12.6 % (0.0-11.0); NEUTROPHIL # 2.4 10^3/ul (1.6-7.5); NEUTROPHILS % 27.6 % (39.0-77.0); PLATELET COUNT 368 10^3/UL (140-415); RED BLOOD COUNT 5.76 10^6/ul (4.70-6.10); RED CELL DISTRIBUTION WIDTH 20.7 % (11.5-14.5)
[2018-11-04 06:24] LABS: WHITE BLOOD COUNT 8.6 10^3/ul (4.8-10.8)
[2018-11-04 07:08] LABS: ALBUMIN 3.8 g/dl (3.3-4.9); ANION GAP 12 (5-13); BLOOD UREA NITROGEN 22 mg/dl (7-20); CARBON DIOXIDE 31 mmol/L (21-31); CHLORIDE 95 mmol/L (97-110); CREATININE 0.82 mg/dl (0.61-1.24); GLUCOSE 118 mg/dl (70-220); MAGNESIUM 1.8 mg/dl (1.7-2.5); PHOSPHORUS 5.6 mg/dl (2.5-4.9); POTASSIUM 4.3 mmol/L (3.5-5.1); SODIUM 138 mmol/L (135-144)
[2018-11-04] MEDS: INSULIN ASPART [NOVOLOG] 3 ML PEN SC ×3 (08:56→17:25)
[2018-11-04] MEDS: NYSTATIN 30 GM POWDER BTL TOP ×2 (08:57→20:19)
[2018-11-04] MEDS: FUROSEMIDE 40 MG TAB PO (08:58)
[2018-11-04] MEDS: METOPROLOL (XL) 50 MG TAB PO (08:59)
[2018-11-04] MEDS: LISINOPRIL 5 MG TAB PO (09:00)
[2018-11-04] MEDS: SENNA TAB PO ×2 (09:00→20:18)
[2018-11-04] MEDS: INSULIN GLARGINE [LANTus] (100 UNITS/ML) SYG SC ×2 (09:02→20:22)
[2018-11-04] MEDS: ENOXAPARIN 60 MG/0.6 ML SYG SC (09:02)
[2018-11-04] MEDS: MINERAL OIL 240 ML LOT TOP (09:06)
[2018-11-05] MEDS: ALBUTEROL/IPRATROPIUM (NEB) 3 ML AMP HHN ×4 (02:13→20:15)
[2018-11-05] MEDS: INSULIN ASPART [NOVOLOG] 3 ML PEN SC ×3 (07:20→17:25)
[2018-11-05] MEDS: SENNA TAB PO ×2 (08:41→20:55)
[2018-11-05] MEDS: FUROSEMIDE 40 MG TAB PO (08:42)
[2018-11-05] MEDS: METOPROLOL (XL) 50 MG TAB PO (08:43)
[2018-11-05] MEDS: LISINOPRIL 5 MG TAB PO (08:44)
[2018-11-05] MEDS: ENOXAPARIN 60 MG/0.6 ML SYG SC (08:44)
[2018-11-05] MEDS: INSULIN GLARGINE [LANTus] (100 UNITS/ML) SYG SC ×2 (08:45→20:57)
[2018-11-05] MEDS: NYSTATIN 30 GM POWDER BTL TOP ×2 (08:45→20:55)
[2018-11-05] MEDS: MINERAL OIL 240 ML LOT TOP (08:45)
[2018-11-06] MEDS: ALBUTEROL/IPRATROPIUM (NEB) 3 ML AMP HHN ×3 (01:15→14:01)
[2018-11-06] MEDS: INSULIN ASPART [NOVOLOG] 3 ML PEN SC ×2 (07:20→11:10)
[2018-11-06] MEDS: SENNA TAB PO (09:13)
[2018-11-06] MEDS: FUROSEMIDE 40 MG TAB PO (09:15)
[2018-11-06] MEDS: METOPROLOL (XL) 50 MG TAB PO (09:15)
[2018-11-06] MEDS: ENOXAPARIN 60 MG/0.6 ML SYG SC (09:16)
[2018-11-06] MEDS: NYSTATIN 30 GM POWDER BTL TOP (09:17)
[2018-11-06] MEDS: INSULIN GLARGINE [LANTus] (100 UNITS/ML) SYG SC (09:17)
[2018-11-06] MEDS: MINERAL OIL 240 ML LOT TOP (09:18)
== END 2018-11-06 14:28 | DRG 207 ==
LOC: ICU 10-02 01:14 → TEL 10-20 15:50 → E/R 11:41 → MS1 10-23 22:50 → ICU 14:17
PROVIDERS: Internal Medicine
PROC: 0BH17EZ Insertion of Endotracheal Airway into Trachea, Via Natural or Artificial Opening (ICD-10-PCS; 2018-09-23)
PROC: 02HV33Z Insertion of Infusion Device into Superior Vena Cava, Percutaneous Approach (ICD-10-PCS; 2018-09-26)
PROC: 5A1955Z Respiratory Ventilation, Greater than 96 Consecutive Hours (ICD-10-PCS; principal; 2018-10-11)
PROC: 0BJ08ZZ Inspection of Tracheobronchial Tree, Via Natural or Artificial Opening Endoscopic (ICD-10-PCS; 2018-10-11)
DX: J96.02 Acute respiratory failure with hypercapnia (principal); I50.33 Acute on chronic diastolic (congestive) heart failure; L89.313 Pressure ulcer of right buttock, stage 3; A41.9 Sepsis, unspecified organism; J18.9 Pneumonia, unspecified organism; E87.2 Acidosis; E66.2 Morbid (severe) obesity with alveolar hypoventilation; E87.3 Alkalosis; G93.49 Other encephalopathy; N17.9 Acute kidney failure, unspecified; Z68.42 Body mass index [BMI] 45.0-49.9, adult; J96.01 Acute respiratory failure with hypoxia; I11.0 Hypertensive heart disease with heart failure; E11.65 Type 2 diabetes mellitus with hyperglycemia; E66.01 Morbid (severe) obesity due to excess calories; R53.81 Other malaise; R00.1 Bradycardia, unspecified; J44.9 Chronic obstructive pulmonary disease, unspecified; F17.200 Nicotine dependence, unspecified, uncomplicated
CPT/HCPCS: 31500; 36415; 36569; 36600; 71045; 74018; 76937; 80048; 80053; 80069; 80202; 80307; 81001; 82550; 82553; 82803; 82962; 83036; 83605; 83735; 83880; 84100; 84132; 84436; 84478; 84479; 84484; 85025; 85610; 85730; 87040; 87081; 87400; 92526; 92610; 93005; 93306; 93970; 94002; 94003; 94640; 94644; 94660; 94664; 94770; 96374; 97110; 97116; 97163; 97530; 99291-25